=== PATIENT | female | born 1930 | race Caucasian/White ===

== ENCOUNTER 2017-07-06 17:42 | Emergency (ER) | payer MEDICARE, OTHER ==
[2017-07-06] MEDS ORDERED: Sodium Chloride 0.9% 10 ML Syringe FLUSH PRN (18:01)
[2017-07-06 18:06] VITALS: BP 140/75
--- NOTE | 2017-07-06 18:13 | EDM.PDOC ---
ED HPI GENERAL MEDICAL PROBLEM - General Chief Complaint: Abdominal Pain Stated Complaint: STOMACH CRAMPS Time Seen by Provider: 07/06/17 17:48 Source of Information: Reports: Patient History Limitations: Reports: No Limitations - History of Present Illness INITIAL COMMENTS - FREE TEXT/NARRATIVE: Patient reports stomach cramping since Friday. She thought it would go away. Primary doctor is Dr. Alecia Knapp. History of SBO last year. She states the pain is like a cramp, is in the middle. No appetite. Had diarrhea Friday and , has not had good BM's since. No nausea or vomiting. Denies blood in urine or stool. No fever, chills, chest pain, SOB, headaches. No recent contact with illness that she is aware of. She does still have her appendix and gall bladder. History of hysterectomy with both ovaries intact. Right sided inguinal hernia. Onset: Gradual Quality: Reports: Ache Severity: Moderate Improves with: Reports: None Worsens with: Reports: None Associated Symptoms: Reports: Loss of Appetite Middle Abdomen Pain Score (Numeric/FACES): 7 - Related Data Allergies Allergy/AdvReac Type Severity Reaction Status Date / Time No Known Allergies Allergy Verified 07/06/17 17:54 Home Meds: Home Meds . [Unable to Verify Home Med List] 07/06/17 [History] Past Medical History HEENT History: Reports: Impaired Vision, Other (See Below) Other HEENT History: Patient wears glasses Gastrointestinal History: Reports: Hiatal Hernia Other Gastrointestinal History: Patient had a hernia repair in 11/03 and a kink in her colon 11/09 Other Genitourinary History: Patient had a bladder sling 03/2000 and bladder repair [employer] History: Reports: Other OB/BYN 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 Patient had two children Musculoskeletal History: Reports: Osteoarthritis Other Musculoskeletal History: Receives an injection twice a year. - Past Surgical History GI Surgical History: Reports: Colon, Hernia Repair/Other Social & Family History - Tobacco Use Smoking Status *Q: Former Smoker - Recreational Drug Use Recreational Drug Use: No ED ROS GENERAL - Review of Systems Review Of Systems: See Below Constitutional: Reports: Decreased Appetite HEENT: Reports: No Symptoms Respiratory: Reports: No Symptoms Cardiovascular: Reports: No Symptoms Endocrine: Reports: No Symptoms GI/Abdominal: Reports: Abdominal Pain, Diarrhea : Reports: No Symptoms Musculoskeletal: Reports: No Symptoms Skin: Reports: No Symptoms Neurological: Reports: No Symptoms Psychiatric: Reports: No Symptoms Hematologic/Lymphatic: Reports: No Symptoms Immunologic: Reports: No Symptoms ED EXAM, GI/ABD - Physical Exam Exam: See Below Exam Limited By: No Limitations General Appearance: Alert, WD/WN, No Apparent Distress Eyes: Bilateral: EOMI Ears: Normal TMs Throat/Mouth: Normal Inspection Head: Atraumatic, Normocephalic Neck: Normal Inspection Respiratory/Chest: No Respiratory Distress, Lungs Clear, Normal Breath Sounds, No Accessory Muscle Use, Chest Non-Tender Cardiovascular: Normal Peripheral Pulses, Regular Rate, Rhythm, No Edema, Systolic Murmur GI/Abdominal Exam: Guarding, Abnormal Bowel Sounds Course - Vital Signs Last Recorded V/S: Last Vital Signs Temp 36.8 C 07/06/17 17:44 Pulse 80 07/06/17 17:44 Resp 16 07/06/17 17:44 BP 140/75 07/06/17 17:44 Pulse Ox - Orders/Labs/Meds Orders: Active Orders 24 hr Category Date Time Status Abdomen Pelvis w Cont [CT] Stat Exams 07/06/17 18:01 Taken Saline Lock Insert [OM.PC] Routine Oth 07/06/17 18:01 Ordered Labs: Laboratory Tests 07/06/17 07/06/17 Range/Units 18:20 18:20 WBC 6.6 (4.0-10.0) x10^3/uL RBC 4.15 (4.00-5.50) x10^6/uL Hgb 12.6 D (12.0-16.0) g/dL Hct 38.3 (33.0-47.0) % MCV 92.3 (78.0-93.0) fL MCH 30.4 (26.0-32.0) pg MCHC 32.9 (32.0-36.0) g/dL RDW Coeff of Tanja 13.7 (10.0-15.0) % Plt Count 201 D (130-400) x10^3/uL Neut % (Auto) 76.6 (50.0-80.0) % Lymph % (Auto) 12.4 L (25.0-50.0) % [place] % (Auto) 10.2 (2.0-11.0) % Eos % (Auto) 0.6 (0.0-4.0) % Baso % (Auto) 0.2 (0.2-1.2) % Sodium 140 (136-145) mmol/L Potassium 3.8 (3.5-5.1) mmol/L Chloride 100 (98-107) mmol/L Carbon Dioxide 30 (21-32) mmol/L BUN 11 (7-18) mg/dL Creatinine 0.7 (0.55-1.02) mg/dL Est Cr Clr Drug Dosing 41.44 mL/min Estimated GFR (MDRD) > 60 Glucose 119 H (74-106) mg/dL Calcium 9.0 (8.5-10.1) mg/dL Corrected Calcium 9.40 (8.5-10.1) mg/dL Total Bilirubin 0.5 (0.2-1.0) mg/dL AST 26 (15-37) U/L ALT 18 (14-59) U/L Alkaline Phosphatase 96 (46-116) U/L C-Reactive Protein 2.2 H (<=0.9) mg/dL Total Protein 8.1 (6.4-8.2) g/dL Albumin 3.5 (3.4-5.0) g/dL Globulin 4.6 Albumin/Globulin Ratio 0.76 Amylase 77 (25-115) U/L Lipase 108 (73-393) U/L Meds: Medications Discontinued Medications Generic Name Dose Route Start Last Admin Trade Name Freq PRN Reason Stop Dose Admin Sodium Chloride 100 mls @ 3 mls/sec 07/06/17 19:00 07/06/17 19:23 Normal Saline IV 3 mls/sec ASDIRECTED KELLEN Administration Sodium Chloride 1,000 mls @ 999 mls/hr 07/06/17 20:31 07/06/17 20:35 Normal Saline IV 07/06/17 21:31 999 mls/hr ONETIME ONE Administration Iopamidol 100 ml 07/06/17 19:00 07/06/17 19:22 [id number] (61%) IVPUSH 07/06/17 19:01 100 ml ONETIME ONE Administration Sodium Chloride 10 ml 07/06/17 18:01 Saline Flush FLUSH ASDIRECTED PRN Keep Vein Open - Radiology Interpretation Free Text/Narrative:: Await CT abdomen/pelvis with contrast results CT of abdomen pelvis suggests recurrent small bowel obstruction secondary to right inguinal hernia Departure - Departure Time of Disposition: 21:15 Disposition: Home, Self-Care 01 Condition: Good Clinical Impression: Small bowel obstruction, Inguinal hernia, right - Discharge Information Instructions: Small Bowel Obstruction, [id number], Hernia, Adult, Easy-to- Read Referrals: Alecia Knapp, DO [Primary Care Provider] - Forms: ED Department Discharge Additional Instructions: Because your small bowel obstruction is not yet causing you acute nausea, vomiting, or severe abdominal pain, I am going to discharge you to seek out medical care in [place]. You do need to rest your bowels, so do not eat anything. You may drink water. We have printed off all of your medical records to call the clinic/surgeon in [place] tomorrow. 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 They should be able to get you in for surgery this week at some point. If you develop severe abdominal pain, nausea, vomiting, or if you feel for any other reason that your obstruction is getting worse, make sure you come to the emergency as soon as you can. Your hernia can cut off blood flow to part of your bowel, which can cause that section to lose oxygen flow and have to be removed, so again, if you develop the above symptoms, make sure you come in right away You may also go to the emergency room in [place], present them with your information and the CD for your abdominal CT. You would then be able to visit with the tanning solution maker surgeon regarding your options. Please call with any questions or concerns. - Problem List & Annotations (1) Small bowel obstruction SNOMED Code(s): 647317409 Code(s): K56.69 - OTHER INTESTINAL OBSTRUCTION Status: Acute Priority: Low (2) Inguinal hernia, right SNOMED Code(s): 821970374 Code(s): K40.90 - UNIL INGUINAL HERNIA, W/O OBST OR GANGR, NOT SPCF RECUR Status: Acute Priority: Low - Problem List Review Problem List Initiated/Reviewed/Updated: Yes - My Orders Last 24 Hours: My Active Orders 07/06/17 18:01 Abdomen Pelvis w Cont [CT] Stat Saline Lock Insert [OM.PC] Routine - Assessment/Plan Last 24 Hours: My Active Orders 07/06/17 18:01 Abdomen Pelvis w Cont [CT] Stat Saline Lock Insert [OM.PC] Routine Assessment:: SBO Inguinal hernia, right Plan: Because your small bowel obstruction is not yet causing you acute nausea, vomiting, or severe abdominal pain, I am going to discharge you to seek out medical care in [place]. You do need to rest your bowels, so do not eat anything. You may drink water. We have printed off all of your medical records to call the clinic/surgeon in [place] tomorrow. 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 They should be able to get you in for surgery this week at some point. If you develop severe abdominal pain, nausea, vomiting, or if you feel for any other reason that your obstruction is getting worse, make sure you come to the emergency as soon as you can. Your hernia can cut off blood flow to part of your bowel, which can cause that section to lose oxygen flow and have to be removed, so again, if you develop the above symptoms, make sure you come in right away You may also go to the emergency room in [place], present them with your information and the CD for your abdominal CT. You would then be able to visit with the tanning solution maker surgeon regarding your options. Please call with any questions or concerns.
[2017-07-06 18:50] LABS: CHLORIDE,CL 100 mmol/L (98-107); SODIUM,NA 140 mmol/L (136-145)
[2017-07-06] MEDS ORDERED: Sodium Chloride 0.9% 100 ML IV SCH (19:00)
[2017-07-06] MEDS ORDERED: Iopamidol 612 MG/ML 100 ML Bottle IVPUSH ONE (19:00)
[2017-07-06] MEDS ORDERED: Sodium Chloride 0.9% 1,000 ML IV ONE (20:31)
== END 2017-07-06 21:15 | disposition home or self-care (01) ==
LOC: VM.ED 17:42
DX: K40.30 Unilateral inguinal hernia, with obstruction, without gangrene, not specified as recurrent (principal); M19.90 Unspecified osteoarthritis, unspecified site; Z87.891 Personal history of nicotine dependence; Z90.710 Acquired absence of both cervix and uterus
CPT/HCPCS: 36415; 74177; 80053; 82150; 83690; 85025; 86140; 96360; 99284; J7030; J7050; Q9967

== ENCOUNTER 2018-05-04 13:38 | Emergency (ER) | payer MEDICARE, OTHER ==
[2018-05-04] MEDS ORDERED: Sodium Chloride 0.9% 10 ML Syringe FLUSH PRN (13:47)
[2018-05-04] MEDS ORDERED: Ondansetron 4 MG/2 ML SDV IVPUSH ONE (13:48)
[2018-05-04] MEDS ORDERED: Sodium Chloride 0.9% 1,000 ML IV ONE (13:48)
[2018-05-04] MEDS ORDERED: Ondansetron 4 MG/2 ML SDV ONE (14:44)
[2018-05-04 14:48] LABS: CHLORIDE,CL 100 mmol/L (98-107); SODIUM,NA 137 mmol/L (136-145)
[2018-05-04] MEDS ORDERED: Morphine 4 MG/ML Syringe IVPUSH ONE ×2 (15:01→16:27)
--- NOTE | 2018-05-04 16:55 | EDM.PDOC ---
ED HPI GENERAL MEDICAL PROBLEM - General Chief Complaint: Gastrointestinal Problem Stated Complaint: ER Time Seen by Provider: 05/04/18 13:46 Source of Information: Reports: Patient, Family - History of Present Illness INITIAL COMMENTS - FREE TEXT/NARRATIVE: Pt. presents to ER with complaints of abdominal pain, nausea, and vomiting that started earlier today. Pt. has a history of recurrent small bowel obstructions as well as a large ventral hernia that was thought to be causing some of her issues. The hernia was repaired at [facility] [place]. Pt. states that she has not been experiencing any fever or chills. No chest pain or shortness of breath. Onset: Today Duration: Constant, Getting Worse Location: Reports: Abdomen Quality: Reports: Ache Severity: Moderate Abdominal Pain Score (Numeric/FACES): 8 - Related Data Allergies Allergy/AdvReac Type Severity Reaction Status Date / Time No Known Allergies Allergy Verified 05/04/18 15:09 Home Meds: Home Meds Brimonidine Tartrate [Alphagan P 0.1% Ophth Soln] 1 drop EYEBOTH BID 05/04/18 [ History] Calcium Carb & Citrate/Vit D3 [Calcium + D3 ER Tablet] 1 each PO BID 05/04/18 [ History] Glucosamine/D3/Boswellia Urvashi [Osteo Bi-Flex Caplet] 1 each PO BID 05/04/18 [ History] Latanoprost 1 drop EYEBOTH BEDTIME 05/04/18 [History] Multivitamin [Multivitamins] 1 each PO DAILY 05/04/18 [History] Psyllium Husk [Metamucil] 1 tsp PO DAILY PRN 05/04/18 [History] Past Medical History HEENT History: Reports: Impaired Vision, Other (See Below) Other HEENT History: Patient wears glasses Gastrointestinal History: Reports: Hiatal Hernia Other Gastrointestinal History: Patient had a hernia repair in 11/03 and a kink in her colon 11/09 Other Genitourinary History: Patient had a bladder sling 03/2000 and bladder repair [employer]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 Patient had two children Musculoskeletal History: Reports: Osteoarthritis Other Musculoskeletal History: Receives an injection twice a year. - Past Surgical History GI Surgical History: Reports: Colon, Hernia Repair/Other Social & Family History - Tobacco Use Smoking Status *Q: Never Smoker ED ROS GENERAL - Review of Systems Review Of Systems: See Below Constitutional: Reports: No Symptoms HEENT: Reports: No Symptoms Respiratory: Reports: No Symptoms Cardiovascular: Reports: No Symptoms Endocrine: Reports: No Symptoms GI/Abdominal: Reports: Abdominal Pain, Vomiting : Reports: No Symptoms Musculoskeletal: Reports: No Symptoms Skin: Reports: No Symptoms Neurological: Reports: No Symptoms Psychiatric: Reports: No Symptoms Hematologic/Lymphatic: Reports: No Symptoms Immunologic: Reports: No Symptoms ED EXAM, GENERAL - Physical Exam Exam: See Below Exam Limited By: No Limitations General Appearance: Alert, WD/WN, No Apparent Distress Nose: Normal Inspection, Normal Mucosa, No Blood Throat/Mouth: Normal Inspection, Normal Lips, Normal Teeth, Normal Gums, Normal Oropharynx, Normal Voice, No Airway Compromise Head: Atraumatic, Normocephalic Neck: Normal Inspection, Supple, Non-Tender, Full Range of Motion Respiratory/Chest: No Respiratory Distress, Lungs Clear, Normal Breath Sounds, No Accessory Muscle Use, Chest Non-Tender Cardiovascular: Normal Peripheral Pulses, Regular Rate, Rhythm, No Edema, No Gallop, No JVD, No Murmur, No Rub Peripheral Pulses: 4+: Radial (L), Radial (R) GI/Abdominal: Soft, No Organomegaly, Tender, Other (bowel sounds are very diminished) (Female) Exam: Deferred Rectal (Female) Exam: Deferred Back Exam: Normal Inspection, Full Range of Motion, NT Extremities: Normal Inspection, Normal Range of Motion, Non-Tender, Normal Capillary Refill, No Pedal Edema Neurological: Alert, Oriented, CN II-XII Intact, Normal Cognition, Normal Gait, Normal Reflexes, No Motor/Sensory Deficits Psychiatric: Normal Affect, Normal Mood Skin Exam: Warm, Dry, Intact, Normal Color, No Rash Lymphatic: No Adenopathy Course - Vital Signs Last Recorded V/S: Last Vital Signs Temp 35.5 C 05/04/18 13:45 Pulse 64 05/04/18 13:45 Resp 16 05/04/18 13:45 BP 135/60 05/04/18 13:45 Pulse Ox 96 05/04/18 13:45 - Orders/Labs/Meds Orders: Active Orders 24 hr Category Date Time Status EKG Documentation Completion [RC] STAT Care 05/04/18 13:47 Active Abdomen Pelvis wo Cont [CT] Stat Exams 05/04/18 14:51 Ordered Abdomen Series w Chest 1V [CR] Stat Exams 05/04/18 13:47 Taken Sodium Chloride 0.9% [Saline Flush] Med 05/04/18 13:47 Active 10 ml FLUSH ASDIRECTED PRN NG [Nasogastric Orogastric Tube Insertion] [OM.PC] Oth 05/04/18 16:39 Ordered Routine Peripheral IV Insertion Adult [OM.PC] Routine Oth 05/04/18 13:48 Ordered Medication Orders Sodium Chloride (Saline Flush) 10 ml FLUSH ASDIRECTED PRN PRN Reason: Keep Vein Open Labs: Laboratory Tests 05/04/18 05/04/18 05/04/18 Range/Units 14:19 14:19 14:19 WBC 11.8 H (4.0-10.0) x10^3/uL RBC 4.93 (4.00-5.50) x10^6/uL Hgb 14.4 D (12.0-16.0) g/dL Hct 44.8 (33.0-47.0) % MCV 90.9 (78.0-93.0) fL MCH 29.2 (26.0-32.0) pg MCHC 32.1 (32.0-36.0) g/dL RDW Coeff of Tanja 14.5 (10.0-15.0) % Plt Count 229 (130-400) x10^3/uL Neut % (Auto) 89.4 H (50.0-80.0) % Lymph % (Auto) 4.9 L (25.0-50.0) % [place] % (Auto) 5.3 (2.0-11.0) % Eos % (Auto) 0.3 (0.0-4.0) % Baso % (Auto) 0.1 L (0.2-1.2) % PT 10.2 (9.6-11.4) SEC INR 1.0 L (2.0-3.5) Sodium 137 (136-145) mmol/L Potassium 3.8 (3.5-5.1) mmol/L Chloride 100 (98-107) mmol/L Carbon Dioxide 30 (21-32) mmol/L Anion Gap 10.8 (10-20) mmol/L BUN 14 (7-18) mg/dL Creatinine 0.7 (0.55-1.02) mg/dL Est Cr Clr Drug Dosing TNP Estimated GFR (MDRD) > 60 Glucose 148 H (74-106) mg/dL Calcium 9.6 (8.5-10.1) mg/dL Corrected Calcium 9.68 (8.5-10.1) mg/dL Phosphorus 4.7 (2.6-4.7) mg/dL Magnesium 2.1 (1.8-2.4) mg/dL Total Bilirubin 0.6 (0.2-1.0) mg/dL AST 28 (15-37) U/L ALT 22 (14-59) U/L Alkaline Phosphatase 116 (46-116) U/L Troponin I < 0.017 (<=0.056) ng/mL C-Reactive Protein 0.8 (<=0.9) mg/dL Total Protein 8.9 H (6.4-8.2) g/dL Albumin 3.9 (3.4-5.0) g/dL Globulin 5.0 Albumin/Globulin Ratio 0.78 Amylase 91 (25-115) U/L Meds: Medications Generic Name Dose Route Start Last Admin Trade Name Freq PRN Reason Stop Dose Admin Sodium Chloride 10 ml 05/04/18 13:47 Saline Flush FLUSH ASDIRECTED PRN Keep Vein Open Discontinued Medications Generic Name Dose Route Start Last Admin Trade Name Freq PRN Reason Stop Dose Admin Sodium Chloride 1,000 mls @ 1,000 mls/hr 05/04/18 13:48 05/04/18 14:52 Normal Saline IV 05/04/18 14:47 1,000 mls/hr .BOLUS ONE Administration Morphine Sulfate 4 mg 05/04/18 15:01 05/04/18 15:30 Morphine IVPUSH 05/04/18 15:02 4 mg ONETIME ONE Administration Morphine Sulfate 4 mg 05/04/18 16:27 05/04/18 16:37 Morphine IVPUSH 05/04/18 16:28 4 mg ONETIME ONE Administration Ondansetron HCl 4 mg 05/04/18 13:48 05/04/18 14:52 Zofran IVPUSH 05/04/18 13:49 Not Given ONETIME ONE Ondansetron HCl Confirm 05/04/18 14:44 05/04/18 14:52 Zofran Administered 05/04/18 14:45 4 mg Dose Administration 4 mg .ROUTE .[facility] ONE - Radiology Interpretation Free Text/Narrative:: CT shows distal SBO, likely secondary to an adhesion. Departure - Departure Time of Disposition: 17:00 Disposition: DC/Tfer to [facility] 02 Clinical Impression: Bowel obstruction - Discharge Information Referrals: Alecia Knapp DO [Primary Care Provider] - Forms: ED Department Discharge, Interfacility Transfer EMTALA - My Orders Last 24 Hours: My Active Orders 05/04/18 13:47 EKG Documentation Completion [RC] STAT Abdomen Series w Chest 1V [CR] Stat Sodium Chloride 0.9% [Saline Flush] 10 ml FLUSH ASDIRECTED PRN 05/04/18 13:48 Peripheral IV Insertion Adult [OM.PC] Routine 05/04/18 14:51 Abdomen Pelvis wo Cont [CT] Stat 05/04/18 16:39 NG [Nasogastric Orogastric Tube Insertion] [OM.PC] Routine - Assessment/Plan Last 24 Hours: My Active Orders 05/04/18 13:47 EKG Documentation Completion [RC] STAT Abdomen Series w Chest 1V [CR] Stat Sodium Chloride 0.9% [Saline Flush] 10 ml FLUSH ASDIRECTED PRN 05/04/18 13:48 Peripheral IV Insertion Adult [OM.PC] Routine 05/04/18 14:51 Abdomen Pelvis wo Cont [CT] Stat 05/04/18 16:39 NG [Nasogastric Orogastric Tube Insertion] [OM.PC] Routine
[2018-05-04 17:15] VITALS: BP 128/72
== END 2018-05-04 17:25 | disposition short-term general hospital (02) ==
LOC: VM.ED 13:38
DX: K56.609 Unspecified intestinal obstruction, unspecified as to partial versus complete obstruction (principal); M19.90 Unspecified osteoarthritis, unspecified site; Z79.899 Other long term (current) drug therapy
CPT/HCPCS: 36415; 74022; 74176; 80053; 82150; 83735; 84100; 84484; 85025; 85610; 86140; 93005; 96361; 96374; 96375; 96376; 99285; J2270; J2405; J7030; 99284-GF

== ENCOUNTER 2018-05-15 18:43 | Emergency (ER) | payer MEDICARE, OTHER ==
[2018-05-15] MEDS ORDERED: Sodium Chloride 0.9% 10 ML Syringe FLUSH PRN (19:00)
[2018-05-15] MEDS: cefTRIAXone 1 GM Vial IVPUSH ONE (19:25)
[2018-05-15] MEDS: Lactated Ringers 1,000 ML IV SCH (19:26)
[2018-05-15] MEDS: Piperacillin/Tazobactam 3.375 GM in Sodium Chloride 0.9% 100 ML IV ONE (19:27)
--- NOTE | 2018-05-15 19:45 | EDM.PDOC ---
ED HPI GENERAL MEDICAL PROBLEM - General Chief Complaint: Gastrointestinal Problem Stated Complaint: incision looks infected Time Seen by Provider: 05/15/18 19:00 Source of Information: Reports: Patient, Family History Limitations: Reports: No Limitations - History of Present Illness INITIAL COMMENTS - FREE TEXT/NARRATIVE: Patient was seen 05/04/18 for SBO and transferred for surgical repair. [place] performed last week [place] [facility] and transferred to [facility] after she began vomiting. A nasogastric tube was inserted then transferred. She was discharged on Friday. She is in tonight with complaints of fever and red, hot abdominal incision. 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 She does take some glaucoma drops and daily vitamins. NO daily medications orally. She denies chills or night sweats, incision is draining, did have a bowel movement this morning and is passing gas. No chest pain, SOB. Pain is located to abdominal incision. Onset: Gradual Duration: Getting Worse Location: Reports: Abdomen Quality: Reports: Ache Severity: Mild Associated Symptoms: Reports: Fever/Chills Lower Abdominal Pain Score (Numeric/FACES): 2 - Related Data Allergies Allergy/AdvReac Type Severity Reaction Status Date / Time No Known Allergies Allergy Verified 05/15/18 18:50 Home Meds: Home Meds Brimonidine Tartrate [Alphagan P 0.1% Ophth Soln] 1 drop EYEBOTH BID 05/04/18 [ History] Calcium Carb & Citrate/Vit D3 [Calcium + D3 ER Tablet] 1 each PO BID 05/04/18 [ History] Glucosamine/D3/Boswellia Urvashi [Osteo Bi-Flex Caplet] 1 each PO BID 05/04/18 [ History] Latanoprost 1 drop EYEBOTH BEDTIME 05/04/18 [History] Multivitamin [Multivitamins] 1 each PO DAILY 05/04/18 [History] Psyllium Husk [Metamucil] 1 tsp PO DAILY PRN 05/04/18 [History] Past Medical History HEENT History: Reports: Impaired Vision, Other (See Below) Other HEENT History: Patient wears glasses Gastrointestinal History: Reports: Hiatal Hernia Other Gastrointestinal History: Patient had a hernia repair in 11/03 and a kink in her colon 11/09 Other Genitourinary History: Patient had a bladder sling 03/2000 and bladder repair 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 Patient had two children Musculoskeletal History: Reports: Osteoarthritis Other Musculoskeletal History: Receives an injection twice a year. - Past Surgical History GI Surgical History: Reports: Colon, Hernia Repair/Other ED ROS GENERAL - Review of Systems Review Of Systems: See Below Constitutional: Reports: Fever HEENT: Reports: No Symptoms Respiratory: Reports: No Symptoms Cardiovascular: Reports: No Symptoms Endocrine: Reports: No Symptoms GI/Abdominal: Reports: Abdominal Pain : Reports: No Symptoms Musculoskeletal: Reports: No Symptoms Skin: Reports: Wound (hot to touch, draining) Neurological: Reports: No Symptoms Psychiatric: Reports: No Symptoms Hematologic/Lymphatic: Reports: No Symptoms Immunologic: Reports: No Symptoms ED EXAM, GI/ABD - Physical Exam Exam: See Below Exam Limited By: No Limitations General Appearance: Alert, WD/WN, No Apparent Distress Eyes: Bilateral: Normal Appearance, EOMI Ears: Normal TMs Nose: Normal Inspection, Normal Mucosa, No Blood Throat/Mouth: Normal Inspection, Normal Lips, Normal Teeth, Normal Gums, Normal Oropharynx, Normal Voice, No Airway Compromise Head: Atraumatic, Normocephalic Neck: Normal Inspection, Supple, Non-Tender, Full Range of Motion Respiratory/Chest: No Respiratory Distress, Lungs Clear, Normal Breath Sounds, No Accessory Muscle Use, Chest Non-Tender Cardiovascular: Normal Peripheral Pulses, Regular Rate, Rhythm, No Edema, No Gallop, No JVD, No Murmur, No Rub GI/Abdominal Exam: Normal Bowel Sounds, Tender, Other (abdomen soft in areas away from transverse incision. incision area is firm and more painful) Back Exam: Normal Inspection, Full Range of Motion, NT Extremities: Normal Inspection, Normal Range of Motion, Non-Tender, Normal Capillary Refill, No Pedal Edema Neurological: Alert, Oriented, CN II-XII Intact, Normal Cognition, Normal Gait, Normal Reflexes, No Motor/Sensory Deficits Psychiatric: Normal Affect, Normal Mood Skin Exam: Erythema, Increased Warmth, Wound/Incision (wound is draining purulent drainage, red, hot to touch, ez are intact, wound is approximated ) Course - Vital Signs Last Recorded V/S: Last Vital Signs Temp 37.7 C 05/15/18 22:14 Pulse 89 05/15/18 22:14 Resp 16 05/15/18 22:14 BP 130/59 L 05/15/18 22:14 Pulse Ox 97 05/15/18 22:14 - Orders/Labs/Meds Orders: Active Orders 24 hr Category Date Time Status Abdomen Pelvis w Cont [CT] Stat Exams 05/15/18 19:01 Ordered CULTURE BLOOD [BC] Stat Lab 05/15/18 18:57 Ordered CULTURE BLOOD [BC] Stat Lab 05/15/18 18:57 Ordered Lactated Ringers @ 150 MLS/HR(1,000ml) Med 05/15/18 19:15 Ordered Lactated Ringers [Ringers, Lactated] 1,000 ml IV ASDIRECTED Sodium Chloride 0.9% [Saline Flush] Med 05/15/18 19:00 Ordered 10 ml FLUSH ASDIRECTED PRN Blood Culture x2 Reflex Set [OM.PC] Stat Oth 05/15/18 18:57 Ordered Saline Lock Insert [OM.PC] Routine Oth 05/15/18 19:00 Ordered Medication Orders Lactated Ringer's (Ringers, Lactated) 1,000 mls @ 150 mls/hr IV ASDIRECTED KELLEN Last Admin: 05/15/18 19:26 Dose: 150 mls/hr Sodium Chloride (Saline Flush) 10 ml FLUSH ASDIRECTED PRN PRN Reason: Keep Vein Open Labs: Laboratory Tests 05/15/18 05/15/18 05/15/18 Range/Units 19:29 19:29 20:00 WBC 12.5 H (4.0-10.0) x10^3/uL RBC 3.50 L (4.00-5.50) x10^6/uL Hgb 10.1 L D (12.0-16.0) g/dL Hct 30.8 L (33.0-47.0) % MCV 88.0 (78.0-93.0) fL MCH 28.9 (26.0-32.0) pg MCHC 32.8 (32.0-36.0) g/dL RDW Coeff of Tanja 14.4 (10.0-15.0) % Plt Count 315 D (130-400) x10^3/uL Add Manual Diff Yes Neutrophils % (Manual) 78 (50-80) % Band Neutrophils % 4 (0-6) % Lymphocytes % (Manual) 16 L (25-50) % Metamyelocytes % 2 H (0) % Platelet Estimate Adequate Sodium 134 L (136-145) mmol/L Potassium 4.0 (3.5-5.1) mmol/L Chloride 99 (98-107) mmol/L Carbon Dioxide 24 (21-32) mmol/L Anion Gap 15.0 (10-20) mmol/L BUN 16 (7-18) mg/dL Creatinine 0.6 (0.55-1.02) mg/dL Est Cr Clr Drug Dosing 47.45 mL/min Estimated GFR (MDRD) > 60 Glucose 113 H (74-106) mg/dL Lactic Acid 0.9 (0.4-2.0) mmol/L Calcium 8.4 L (8.5-10.1) mg/dL Corrected Calcium 9.20 (8.5-10.1) mg/dL Total Bilirubin 0.7 (0.2-1.0) mg/dL AST 142 H (15-37) U/L ALT 175 H (14-59) U/L Alkaline Phosphatase 147 H (46-116) U/L Total Protein 7.9 (6.4-8.2) g/dL Albumin 3.0 L (3.4-5.0) g/dL Globulin 4.9 Albumin/Globulin Ratio 0.61 Meds: Medications Generic Name Dose Route Start Last Admin Trade Name Freq PRN Reason Stop Dose Admin Lactated Ringer's 1,000 mls @ 150 mls/hr 05/15/18 19:15 05/15/18 19:26 Ringers, Lactated IV 150 mls/hr ASDIRECTED KELLEN Administration Sodium Chloride 10 ml 05/15/18 19:00 Saline Flush FLUSH ASDIRECTED PRN Keep Vein Open Discontinued Medications Generic Name Dose Route Start Last Admin Trade Name Freq PRN Reason Stop Dose Admin Ceftriaxone Sodium 1 gm 05/15/18 19:01 05/15/18 19:25 Rocephin IVPUSH 05/15/18 19:02 1 gm STAT ONE Administration Piperacillin Sod/Tazobactam 100 mls @ 200 mls/hr 05/15/18 19:00 05/15/18 19: 27 Sod 3.375 gm/ Sodium Chloride IV 05/15/18 19:29 200 mls/hr ONETIME ONE Administration Iopamidol 100 ml 05/15/18 19:05 05/15/18 19:58 Isovue-300 (61%) IVPUSH 05/15/18 19:06 100 ml ONETIME ONE Administration - Radiology Interpretation Free Text/Narrative:: abdominal CT results: Small subcutaneous fluid collection along the upper aspect of the midline skin ez. This may represent seroma, hematoma, or abscess. 2. Gastrointestinal tract findings most consistent with generalized ileus. Follow up is recommended. - Re-Assessments/Exams Free Text/Narrative Re-Assessment/Exam: 05/15/18 19:49 CT ordered to determine status of abscess, cellulitis Free Text/Narrative Re-Assessment/Exam: 05/15/18 22:18 Patient case was called to [facility] to discuss further treatment of her incision. Dr. Hazel indicated to [place] [facility] call that she should return to [facility] since this is a post operative complication and they should follow up. I then called Dr. Carolina who initially did accept the patient but was concerned that she transferred to [place] postoperatively. I at that time did not have records indicating why she was transferred. She was transferred after post op. nausea and vomiting with NG placement. Dr. Apodaca in [place] felt that transferring her was best in case the need arose for more advanced surgical intervention as she does have a long history of SBO. Dr. Rachel Peterson was called to determine if she would admit with the patient having a partially opened wound for draining and she did not feel comfortable with this type of patient here. [facility] notified that she would be transferring. I visited with Dr. Glass in the ER. Dr. Carolina did request that I review her chart to be sure that she would not need transferring to [place]. He didn't want to be moving her all over the [place] if a repeat medical condition repeated itself. She was not transferred for any conditions that they would not be able to address. Departure - Departure Time of Disposition: 22:32 Disposition: DC/Tfer to Acute Hospital 02 Condition: Fair Clinical Impression: Postoperative wound infection - Discharge Information Referrals: Alecia Knapp DO [Primary Care Provider] - Forms: ED Department Discharge, Interfacility Transfer [facility] ED Communication - ED Communication Date/Time Date: 05/15/18 Time Called: 22:10 - Discussed Case With (1) Discussed Case With (1): Admitting Provider (Dr. Carolina did accept care of the patient, Dr. Glass notified in ER as well.) - My Orders Last 24 Hours: My Active Orders 05/15/18 18:57 CULTURE BLOOD [BC] Stat CULTURE BLOOD [BC] Stat Blood Culture x2 Reflex Set [OM.PC] Stat 05/15/18 19:00 Sodium Chloride 0.9% [Saline Flush] 10 ml FLUSH ASDIRECTED PRN Saline Lock Insert [OM.PC] Routine 05/15/18 19:01 Abdomen Pelvis w Cont [CT] Stat 05/15/18 19:15 Lactated Ringers @ 150 MLS/HR(1,000ml) Lactated Ringers [Ringers, Lactated] 1, 000 ml IV ASDIRECTED - Assessment/Plan Last 24 Hours: My Active Orders 05/15/18 18:57 CULTURE BLOOD [BC] Stat CULTURE BLOOD [BC] Stat Blood Culture x2 Reflex Set [OM.PC] Stat 05/15/18 19:00 Sodium Chloride 0.9% [Saline Flush] 10 ml FLUSH ASDIRECTED PRN Saline Lock Insert [OM.PC] Routine 05/15/18 19:01 Abdomen Pelvis w Cont [CT] Stat 05/15/18 19:15 Lactated Ringers @ 150 MLS/HR(1,000ml) Lactated Ringers [Ringers, Lactated] 1, 000 ml IV ASDIRECTED
[2018-05-15] MEDS: Iopamidol 612 MG/ML 100 ML Bottle IVPUSH ONE (19:58)
[2018-05-15 20:09] LABS: CHLORIDE,CL 99 mmol/L (98-107); SODIUM,NA 134 mmol/L (136-145)
[2018-05-15 22:22] VITALS: BP 130/59
== END 2018-05-15 22:30 | disposition short-term general hospital (02) ==
LOC: VM.ED 18:43
DX: T81.4XXA Infection following a procedure, initial encounter (principal); Z79.899 Other long term (current) drug therapy; Z98.890 Other specified postprocedural states
CPT/HCPCS: 36415; 74177; 80053; 83605; 85025; 87040; 96365; 96366; 96368; 96375; 99285; J0696; J2543; J7050; J7120; Q9967

== ENCOUNTER 2019-10-29 20:10 | Emergency (ER) | payer MEDICARE, OTHER ==
--- NOTE | 2019-10-29 20:32 | EDM.PDOC ---
ED HPI GENERAL MEDICAL PROBLEM - General Time Seen by Provider: 10/29/19 20:32 - History of Present Illness INITIAL COMMENTS - FREE TEXT/NARRATIVE: Pt with hx of bowel obstruction in the past presents c/o abd pain started at 1630 today and has not changed. Pt with bowel movements today states several this after noon, no changes in bladder habit. Lower Abdomen Pain Score (Numeric/FACES): 8 - Related Data Allergies Allergy/AdvReac Type Severity Reaction Status Date / Time No Known Allergies Allergy Verified 10/29/19 21:20 Home Meds: Home Meds Brimonidine Tartrate [Alphagan P 0.1% Ophth Soln] 1 drop EYEBOTH BID 05/04/18 [ History] Calcium Carb, Citrate/Vit D3 [Calcium + D3 ER Tablet] 1 each PO BID 05/04/18 [ History] Glucosamine/D3/Boswellia Urvashi [Osteo Bi-Flex Caplet] 1 each PO BID 05/04/18 [ History] Latanoprost 1 drop EYEBOTH BEDTIME 05/04/18 [History] Multivitamin [Multivitamins] 1 each PO DAILY 05/04/18 [History] Psyllium Husk [Metamucil] 1 tsp PO DAILY PRN 05/04/18 [History] Past Medical History HEENT History: Reports: Impaired Vision, Other (See Below) Other HEENT History: Patient wears glasses Gastrointestinal History: Reports: Hiatal Hernia Other Gastrointestinal History: Patient had a hernia repair in 11/03 and a kink in her colon 11/09 Other Genitourinary History: Patient had a bladder sling 03/2000 and bladder repair 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 Patient had two children Musculoskeletal History: Reports: Osteoarthritis Other Musculoskeletal History: Receives an injection twice a year. - Past Surgical History GI Surgical History: Reports: Colon, Hernia Repair/Other ED ROS GENERAL - Review of Systems Review Of Systems: See Below Constitutional: Reports: No Symptoms HEENT: Reports: No Symptoms Respiratory: Reports: No Symptoms Cardiovascular: Reports: No Symptoms Endocrine: Reports: No Symptoms GI/Abdominal: Reports: Abdominal Pain, Flatus : Reports: No Symptoms Musculoskeletal: Reports: No Symptoms Skin: Reports: No Symptoms Neurological: Reports: No Symptoms Psychiatric: Reports: No Symptoms Hematologic/Lymphatic: Reports: No Symptoms ED EXAM, GENERAL - Physical Exam Exam: See Below Free Text/Narrative:: Pt presents with mid abd pain started at 1630 tonight and has not changed. Pt with hx of bowel obstructions in the past. Pt states she has had several bm tonight as of then with gas. Ct notes severely dilated loops of small bowel in mid abdomen, bilateral renal cysts, small free fluid in the pelvis. Discussed with Dr. Rivero Hospitalist at [facility] will transfer to there facility for further evaluation and treatment as needed. Exam Limited By: No Limitations General Appearance: Alert, WD/WN, Moderate Distress Ears: Normal External Exam Nose: Normal Inspection Throat/Mouth: Normal Inspection Head: Atraumatic, Normocephalic Neck: Normal Inspection, Supple, Non-Tender Respiratory/Chest: No Respiratory Distress, Lungs Clear, Normal Breath Sounds, No Accessory Muscle Use, Chest Non-Tender Cardiovascular: Normal Peripheral Pulses GI/Abdominal: Other (mid abd pain on palpation ) Back Exam: Normal Inspection Neurological: Alert, Oriented Psychiatric: Normal Affect, Normal Mood Skin Exam: Warm, Dry, Intact, Normal Color, No Rash Course - Vital Signs Last Recorded V/S: Last Vital Signs Temp 36.9 C 10/29/19 20:10 Pulse 67 10/29/19 20:10 Resp 16 10/29/19 20:10 BP 153/71 H 10/29/19 20:10 Pulse Ox 99 10/29/19 20:10 - Orders/Labs/Meds Orders: Active Orders 24 hr Category Date Time Status Gastrointestinal Tube Mgmt [RC] ASDIRECTED Care 10/29/19 23:09 Ordered Abdomen Pelvis w Cont [CT] Stat Exams 10/29/19 21:18 Taken CULTURE BLOOD [BC] Stat Lab 10/29/19 23:04 Ordered CULTURE BLOOD [BC] Stat Lab 10/29/19 23:04 Ordered LACTIC ACID [CHEM] Stat Lab 10/29/19 23:10 Ordered Blood Culture x2 Reflex Set [OM.PC] Stat Oth 10/29/19 23:04 Ordered Labs: Laboratory Tests 10/29/19 10/29/19 10/29/19 Range/Units 20:25 20:25 20:48 WBC 11.5 H (4.0-10.0) x10^3/uL RBC 3.52 L (4.00-5.50) x10^6/uL Hgb 9.0 L (12.0-16.0) g/dL Hct 29.3 L (33.0-47.0) % MCV 83.2 D (78.0-93.0) fL MCH 25.6 L (26.0-32.0) pg MCHC 30.7 L (32.0-36.0) g/dL RDW Coeff of Tanja 16.6 H (10.0-15.0) % Plt Count 334 (130-400) x10^3/uL Neut % (Auto) 89.2 H (50.0-80.0) % Lymph % (Auto) 5.4 L (25.0-50.0) % Mccracken % (Auto) 4.7 (2.0-11.0) % Eos % (Auto) 0.2 (0.0-4.0) % Baso % (Auto) 0.5 (0.2-1.2) % Sodium 138 (136-145) mmol/L Potassium 3.4 L (3.5-5.1) mmol/L Chloride 100 (98-107) mmol/L Carbon Dioxide 26 (21-32) mmol/L Anion Gap 15.4 (10-20) mmol/L BUN 16 (7-18) mg/dL Creatinine 0.6 (0.55-1.02) mg/dL Est Cr Clr Drug Dosing TNP Estimated GFR (MDRD) > 60 Glucose 166 H (74-106) mg/dL Calcium 8.3 L (8.5-10.1) mg/dL Urine Color Yellow (YELLOW) Urine Appearance Clear (CLEAR) Urine pH 6.5 (5.0-8.0) Ur Specific [place] 1.025 Urine Protein Negative (NEGATIVE) mg/dL Urine Glucose (UA) Negative (NEGATIVE) mg/dL Urine Ketones 80 H (NEGATIVE) mg/dL Urine Occult Blood Trace-intact H (NEGATIVE) Urine Nitrite Negative (NEGATIVE) Urine Bilirubin Negative (NEGATIVE) Urine Urobilinogen 0.2 (0.2) EU/dL Ur Leukocyte Esterase Negative (NEGATIVE) Urine RBC 0-5 (NOT SEEN) /HPF Urine WBC 5-10 H (NOT SEEN) /HPF Ur Squamous Epith Cells Rare (NEGATIVE) /HPF Amorphous Sediment Few Urine Bacteria Few H (NEGATIVE) /HPF Urine Mucus Moderate H (NEGATIVE) /LPF Meds: Medications Discontinued Medications Generic Name Dose Route Start Last Admin Trade Name Erna PRN Reason Stop Dose Admin Ceftriaxone Sodium 1 gm 10/29/19 23:24 Rocephin IV 10/29/19 23:25 STAT ONE Ceftriaxone Sodium 1 gm 10/29/19 23:27 Rocephin IVPUSH 10/29/19 23:28 STAT ONE Cephalexin 1 packet 10/29/19 22:49 Take Home: Cephalexin 250 Mg/5 Ml, 1 Bottle PO 10/29/19 22:50 ONETIME ONE Fentanyl 50 mcg 10/29/19 20:35 10/29/19 20:47 Sublimaze IVPUSH 10/29/19 20:36 50 mcg ONETIME ONE Administration Fentanyl 50 mcg 10/29/19 22:35 10/29/19 22:43 Sublimaze IVPUSH 10/29/19 22:36 50 mcg ONETIME ONE Administration Iopamidol 100 ml 10/29/19 21:33 10/29/19 21:56 Isovue-300 (61%) IVPUSH 10/29/19 21:34 100 ml ONETIME ONE Administration Ondansetron HCl 4 mg 10/29/19 20:36 10/29/19 20:45 Zofran IVPUSH 10/29/19 20:37 4 mg ONETIME ONE Administration Departure - Departure Time of Disposition: 23:31 Disposition: DC/Tfer to Acute Hospital 02 Condition: Fair Clinical Impression: Small bowel obstruction - Discharge Information Referrals: Alecia Knapp DO [Primary Care Provider] - Forms: Interfacility Transfer EMTALA - My Orders Last 24 Hours: My Active Orders 10/29/19 21:18 Abdomen Pelvis w Cont [CT] Stat 10/29/19 23:04 CULTURE BLOOD [BC] Stat CULTURE BLOOD [BC] Stat Blood Culture x2 Reflex Set [OM.PC] Stat 10/29/19 23:09 Gastrointestinal Tube Mgmt [RC] ASDIRECTED 10/29/19 23:10 LACTIC ACID [CHEM] Stat - Assessment/Plan Last 24 Hours: My Active Orders 10/29/19 21:18 Abdomen Pelvis w Cont [CT] Stat 10/29/19 23:04 CULTURE BLOOD [BC] Stat CULTURE BLOOD [BC] Stat Blood Culture x2 Reflex Set [OM.PC] Stat 10/29/19 23:09 Gastrointestinal Tube Mgmt [RC] ASDIRECTED 10/29/19 23:10 LACTIC ACID [CHEM] Stat
[2019-10-29] MEDS ORDERED: fentaNYL 100 MCG/2 ML SDV IVPUSH ONE ×2 (20:35→22:35)
[2019-10-29] MEDS ORDERED: Ondansetron 4 MG/2 ML SDV IVPUSH ONE (20:36)
[2019-10-29 20:57] LABS: CHLORIDE,CL 100 mmol/L (98-107); SODIUM,NA 138 mmol/L (136-145)
[2019-10-29 20:58] LABS: ANION GAP 15.4 mmol/L (10-20)
[2019-10-29 21:12] VITALS: BP 153/71; PULSE 67
[2019-10-29] MEDS ORDERED: Iopamidol 612 MG/ML 100 ML Bottle IVPUSH ONE (21:33)
[2019-10-29] MEDS ORDERED: Take Home: Cephalexin 250 MG/5 ML Susp 100 ML Bottle, 1 Bottle Pack PO ONE (22:49)
[2019-10-29] MEDS ORDERED: cefTRIAXone 1 GM Vial IV ONE (23:24)
[2019-10-29] MEDS ORDERED: cefTRIAXone 1 GM Vial IVPUSH ONE (23:27)
--- NOTE | 2019-10-30 08:42 | CT ---
[id number] CT/CT Abdomen Pelvis W IV EXAM: ABDOMEN AND PELVIS CT WITH CONTRAST INDICATION: Lower midline abdominal pain with history of bowel obstruction. COMPARISON: May 15, 2018. DISCUSSION: The small bowel progressively dilates to approximately 5 cm and abruptly transitions to decompressed bowel in the right lower quadrant (image 74 series 2) compatible with small bowel obstruction. The mesentery of the distalmost obstructed bowel loops demonstrates edema and there is a small amount of free fluid in the pelvis. No pneumatosis or free air is identified. The abdominal wall demonstrates muscle atrophy and significant diastases. The gallbladder is small or absent. There are bilateral renal cysts the largest on the right measuring up to 6.6 cm in diameter. 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 Scattered atherosclerotic plaque in the aorta and its major branches. Hysterectomy. Mild scarring or atelectasis in the imaged lung bases. A calcification inferior to the bladder along the vaginal cuff could represent a calculus within a urethral diverticulum, but is nonspecific and measures about 11 x 5 mm. The liver, pancreas, spleen, adrenal glands and large bowel are normal in appearance. IMPRESSION: 1. Mid to distal small bowel obstruction with transition point in the right lower quadrant. The distalmost obstructed loop demonstrates mild wall thickening and mesenteric edema. There is a small volume of free fluid in the pelvis. Jimi Martínez MD 10/30/19 0841 Thank you for allowing us to participate in the care of your patient.
== END 2019-10-29 23:57 | disposition short-term general hospital (02) ==
LOC: VM.ED 20:10
DX: K56.609 Unspecified intestinal obstruction, unspecified as to partial versus complete obstruction (principal); Z79.899 Other long term (current) drug therapy
CPT/HCPCS: 36415; 74177; 80048; 81001; 83605; 85025; 87040; 96374; 96375; 96376; 99284-GF; 99285-25; J0696; J2405; J3010; Q9967

== ENCOUNTER 2019-11-09 14:25 | Inpatient (IN) | payer MEDICARE, OTHER ==
--- NOTE | 2019-11-10 12:27 | PCM.HP.2 ---
H&P History of Present Illness - General Date of Service: 11/10/19 Admit Problem/Dx: Admission Diagnosis/Problem Admission Diagnosis/Problem Small bowel obstruction Source of Information: Patient, Old Records History Limitations: Reports: No Limitations - History of Present Illness Initial Comments - Free Text/Narative: Mrs. Narayan is an 89 yo female with PMH of anemia, osteoporosis, OA, cataracts, and glaucoma who is admitted to swing bed for strengthening prior to return home. She was hospitalized at [facility] 10/30/19-11/10/19 for a small bowel obstruction. This did require an ex lap with lysis of adhesions on 10/31 followed by small bowel anastomosis and abdominal closure on 11/02. Her hospitalization was complicated by a slow return of bowel function. She was kept NPO from 10/30 until 11/04 and was provided maintenance IV fluids. She was then started on TPN on 11/04 due to ongoing ileus. She was then started on clear liquids on 11/05 and her diet was subsequently advanced as she tolerated TPN was continued until 11/08 when her oral intake was deemed adequate. Her pain was initially controlled with a TACK PICKER and then she was weaned to oral medications as able, eventually transitioning to only tylenol for pain control. She had expected electrolyte disturbances related to the above issues, which were all replaced and appropriately corrected. She was noted to have acute on chronic anemia as well for which she received iron infusions. She was evaluated by PT and OT and further strengthening was recommended prior to her return home. Therefore, she was transferred to [facility] swing bed. Upon arrival to the floor, she states that she is doing ok. She is surprised how weak she got just from being in the hospital. Her abdomen is sore but she is not having significant pain. Nursing staff note that she does have some redness in certain spots around her incision. She notes that she is still more distended than her baseline but states this has not gotten worse. Her appetite is not great but she has not had nausea or vomiting. She had a bowel movement today and is passing gas. She denies any fever or chills. ROS is otherwise negative. She is not using her glaucoma drops as she had stents put in with her cataract surgery and was told by her environmental technician that she does not need the drops anymore. - Related Data Allergies/Adverse Reactions: Allergies Allergy/AdvReac Type Severity Reaction Status Date / Time No Known Allergies Allergy Verified 10/29/19 21:20 Home Medications: Home Meds Brimonidine Tartrate [Alphagan P 0.1% Ophth Soln] 1 drop EYEBOTH BID 05/04/18 [ History] Calcium Carb, Citrate/Vit D3 [Calcium + D3 ER Tablet] 1 each PO BEDTIME [History] Latanoprost 1 drop EYEBOTH BEDTIME 05/04/18 [History] Multivitamin [Multivitamins] 1 each PO DAILY 05/04/18 [History] Acetaminophen 650 mg PO Q4HR 11/10/19 [History] Glucosam/Chond-MSM 2/C/D3/Geo [Peggtmsoho-Bsqilklyvug-CZZ] 1 tab PO BEDTIME 10/19 [History] Polyethylene Glycol 3350 [MiraLAX] 1 packet PO DAILY 11/10/19 [History] Past Medical History HEENT History: Reports: Cataract, Glaucoma, Impaired Vision, Other (See Below) Other HEENT History: Patient wears glasses Cardiovascular History: Reports: None Respiratory History: Reports: None Gastrointestinal History: Reports: Bowel Obstruction, Hiatal Hernia Other Gastrointestinal History: Patient had a hernia repair in 11/03 and a kink in her colon 11/09 Genitourinary History: Reports: None Other Genitourinary History: Patient had a bladder sling 03/2000 and bladder repair CAMP DIRECTOR History: Reports: Other OB/BYN 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 Patient had two children Musculoskeletal History: Reports: Osteoarthritis Other Musculoskeletal History: Receives an injection twice a year. 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) Psychiatric History: Reports: None Endocrine/Metabolic History: Reports: None Hematologic History: Reports: Anemia Immunologic History: Reports: None Oncologic (Cancer) History: Reports: Squamous Cell Carcinoma Dermatologic History: Reports: None - Past Surgical History GI Surgical History: Reports: Colon, Hernia, Abdominal, Hernia Repair/Other, Lysis of Adhesions, Small Bowel Female Surgical History: Reports: Hysterectomy Social & Family History - Family History HEENT: Reports: Glaucoma Cardiac: Reports: Hypertension Oncologic: Reports: Breast - Tobacco Use Smoking Status *Q: Former Smoker - Alcohol Use Alcohol Use History: No Alcohol Use in Last Twelve Months: No - Recreational Drug Use Recreational Drug Use: No - Living Situation & Occupation Living situation: Reports: , Alone Occupation: Retired H&P Review of Systems - Review of Systems: Review Of Systems: See Below General: Reports: No Symptoms HEENT: Reports: No Symptoms Pulmonary: Reports: No Symptoms Cardiovascular: Reports: No Symptoms Gastrointestinal: Reports: Abdominal Pain Genitourinary: Reports: No Symptoms Musculoskeletal: Reports: No Symptoms Skin: Reports: No Symptoms Psychiatric: Reports: No Symptoms Neurological: Reports: No Symptoms Exam - Exam Exam: See Below - Exam General: Alert, Oriented, Cooperative HEENT: Conjunctiva Clear, Mucosa Moist & [place], Posterior Pharynx Clear, Pupils Equal, Pupils Reactive Neck: Supple, Trachea Midline. No: Lymphadenopathy, Thyromegaly Lungs: Clear to Auscultation, Normal Respiratory Effort Cardiovascular: Regular Rate, Regular Rhythm, Normal S1, Normal S2 GI/Abdominal Exam: Normal Bowel Sounds, Soft, No Organomegaly, No Mass, Distended, Tender (as expected at this point postoperatively), Other (central incision is well approximated; she does have areas of erythema and induration but these areas are not warm or tender to touch) Extremities: Normal Inspection, Non-Tender, No Pedal Edema, Normal Capillary Refill Peripheral Pulses: 2+: Radial (L), Radial (R) Skin: Warm, Dry, Intact *Q Meaningful Use (ADM) - VTE *Q VTE Anticoagulation Contraindications: Med/TX Not Indicated/Need - Problem List (1) Generalized weakness SNOMED Code(s): 06245094 ICD Code: R53.1 - WEAKNESS Status: Acute Current Visit: No (2) Bowel obstruction SNOMED Code(s): 48037589 ICD Code: K56.609 - UNSP INTESTNL OBST, UNSP TO PARTIAL VERSUS COMPLETE OBST Status: Resolved Current Visit: No Qualifiers: Intestinal obstruction type: obstruction due to adhesions Intestinal obstruction extent: complete Qualified Code(s): K56.52 - Intestinal adhesions [bands] with complete obstruction (3) Electrolyte abnormality SNOMED Code(s): 302507572 ICD Code: E87.8 - OTH DISORDERS OF ELECTROLYTE AND FLUID BALANCE, NEC Status: Acute Current Visit: No (4) Anemia SNOMED Code(s): 870265125 ICD Code: D64.9 - ANEMIA, UNSPECIFIED Status: Acute Current Visit: No Qualifiers: Anemia type: iron deficiency Iron deficiency anemia type: unspecified iron deficiency Qualified Code(s): D50.9 - Iron deficiency anemia, unspecified (5) Glaucoma SNOMED Code(s): 78431975 ICD Code: H40.9 - UNSPECIFIED GLAUCOMA Status: Chronic Current Visit: No Qualifiers: Glaucoma type: unspecified Laterality: unspecified laterality Qualified Code(s): H40.9 - Unspecified glaucoma Problem List Initiated/Reviewed/Updated: Yes Orders Last 24hrs: Active Orders 24 hr Category Date Time Status Patient Status [ADT] Routine ADT 11/10/19 12:07 Ordered Notify Provider Vital Signs [RC] ASDIRECTED Care 11/10/19 12:09 Ordered Oxygen Therapy [RC] PRN Care 11/10/19 12:07 Ordered Up With Assistance [RC] ASDIRECTED Care 11/10/19 12:07 Ordered VTE/DVT Education [RC] PER UNIT ROUTINE Care 11/10/19 12:07 Ordered Vital Signs [RC] PER UNIT ROUTINE Care 11/10/19 12:07 Ordered OT Evaluation and Treatment [CONS] Routine Cons 11/10/19 12:07 Ordered PT Evaluation and Treatment [CONS] Routine Cons 11/10/19 12:07 Ordered Regular Diet [DIET] Diet 11/10/19 Dinner Ordered Anticoagulation Contraindications VTE [AST] Routine Oth 11/10/19 12:07 Ordered Resuscitation Status Routine Resus Stat 11/10/19 12:07 Ordered Assessment/Plan Comment:: 89 yo female admitted to swing bed for strengthening prior to return home after a prolonged hospitalization in [place]. #1 Generalized Weakness - Patient is deconditioned due to her long hospitalization. - PT and OT consults ordered. #2 SBO s/p ex lap with lysis of adhesions (10/31) followed by small bowel anastomosis and abdominal closure (11/02) - Patient is now on a regular diet and doing well. - Continue tylenol PRN for pain. - Incisional redness is not consistent in appearance with infection. Will monitor daily for now and consider antibiotics if worsening. - Her surgical follow-up appointment is scheduled. #3 Electrolyte abnormalities #4 Acute on chronic anemia s/p venofer infusion - Will plan recheck of lab early next week, sooner as indicated by patient symptoms. #5 Glaucoma - Drops discontinued by her eye provider. Patient is admitted to swing bed - timing of discharge to home will depend on how she does with PT and OT. Continue medications as per her hospital discharge list. Code status is full - discussed with patient on admission. No indication for VTE prophylaxis at this time.
--- NOTE | 2019-11-11 09:03 | PCM.SN ---
- Free Text/Narrative Note: Patient seen today for incision check. The redness and induration remains inside the previously drawn outlines. Patient to notify nursing if this extends outside of the lines drawn. Patient has some cramping today and has not passed gas or had a BM since yesterday am. She is to let nursing know if this continues throughout the day as we would then likely proceed with bowel rest for 24 hours in hopes of avoiding any significant ileus or SBO.
[2019-11-11] MEDS: Polyethylene Glycol 3350 Powder 17 GM Packet PO SCH (09:20)
[2019-11-11] MEDS: Acetaminophen 325 MG Tab PO PRN (14:46)
[2019-11-12] MEDS: Acetaminophen 325 MG Tab PO PRN ×2 (02:01→19:37)
[2019-11-12] MEDS: Polyethylene Glycol 3350 Powder 17 GM Packet PO SCH ×2 (08:36→18:36)
[2019-11-12] MEDS ORDERED: Benzocaine/Cetylpyridinium/Menthol Lozenge MUCMEM PRN (19:11)
[2019-11-13] MEDS: Polyethylene Glycol 3350 Powder 17 GM Packet PO SCH (14:16)
[2019-11-13] MEDS: Acetaminophen 325 MG Tab PO PRN (14:18)
[2019-11-14] MEDS: Polyethylene Glycol 3350 Powder 17 GM Packet PO SCH (08:16)
[2019-11-14] MEDS: Acetaminophen 325 MG Tab PO PRN (08:27)
[2019-11-15 06:57] LABS: CHLORIDE,CL 103 mmol/L (98-107); SODIUM,NA 138 mmol/L (136-145)
[2019-11-15 06:58] LABS: ANION GAP 15.6 mmol/L (10-20)
[2019-11-15] MEDS: Polyethylene Glycol 3350 Powder 17 GM Packet PO SCH (07:40)
[2019-11-16] MEDS: Polyethylene Glycol 3350 Powder 17 GM Packet PO SCH (08:50)
--- NOTE | 2019-11-16 17:09 | PN ---
Progress Note for KERRY STACY Date: 11/16/2019 Room #: VM.205 SUBJECTIVE: This is an 89-year-old on swing bed recovering after bowel surgery due to obstruction. She had a laparotomy. She had been on antibiotics but not since coming here. It was a little bit red. I looked at it today. It looked fine. Her pain is under good control. She has not required any narcotics. She has been eating nearly a 100% of her meals, working with therapies and walking. It sounds like she will be able to go home may be even later this week. She did get some IV iron in [place]. She had been getting quite tired by the afternoon. She has not noticed it as much here. OBJECTIVE: Vital Signs: Her temperature is 98.3, pulse 89, blood pressure 108/55, respiratory rate 17, and O2 of 96 on room air. General: She is in no acute distress. Heart: Regular rate and rhythm. S1, S2 without murmur. Lungs: Lung sounds are clear to auscultation bilaterally without crackles or wheezes except for some faint crackles in the left base. Incentive spirometry is found in her room. She will start using it. Abdomen: Positive bowel sounds. Soft, nontender. Midline ez intact. Minimal redness. No drainage. Mental Status: She is alert. She is orientated x3. LABORATORY WORK: From yesterday looked excellent. Hemoglobin 8.9. Sodium 138, creatinine 0.4, calcium 8.2, and magnesium 1.9. ASSESSMENT: 1. Postoperative from an exploratory laparotomy with lysis of adhesions on 10/31/2019 followed by small-bowel anastomosis and abdominal closure on 11/02/2019. 2. Chronic iron-deficiency anemia. 3. Generalized weakness due to the above. 4. Glaucoma. PLAN: At this point, the patient will continue swing bed cares to work with therapies. We will get her using her incentive spirometry more. We will repeat lab work on the day she goes home with a ferritin to decide on her next rounds of iron infusions. MKA: 11/16/2019 16:24:13 MODL: 11/16/2019 16:53:37 /[id number]
[2019-11-17] MEDS: Polyethylene Glycol 3350 Powder 17 GM Packet PO SCH (07:57)
[2019-11-18] MEDS: Polyethylene Glycol 3350 Powder 17 GM Packet PO SCH (08:25)
--- NOTE | 2019-11-18 09:49 | PCM.SN ---
- Free Text/Narrative Note: Patient had 3 loose stools this AM so declined to go down for post op appt. Surgery called they said ok for us to remove ez per the nurse. She had been on ABX while at [place]. She is also on Miralax now. We will stop that and if loose stools continue will check for c. diff. Incision was seen by me yesterday and looked ok other than some minor redness at the lower end. I think it will improve with the ez coming out. Patient doing well likely home Friday.
[2019-11-19 09:09] LABS: CHLORIDE,CL 103 mmol/L (98-107); SODIUM,NA 139 mmol/L (136-145)
[2019-11-19 09:10] LABS: ANION GAP 15.3 mmol/L (10-20)
[2019-11-19] MEDS ORDERED: Potassium Chloride 10 MEQ Tab.ER PO ONE ×2 (13:09→15:15)
[2019-11-22 05:03] VITALS: BP 94/51; PULSE 84
[2019-11-22 07:46] LABS: ANION GAP 16.4 mmol/L (10-20); CHLORIDE,CL 103 mmol/L (98-107); SODIUM,NA 140 mmol/L (136-145)
[2019-11-22] MEDS ORDERED: Potassium Chloride 10 MEQ Tab.ER PO ONE (08:09)
--- NOTE | 2019-11-23 04:00 | DISCH ---
PRIMARY DISCHARGE DIAGNOSIS: Postoperative from 2 bowel surgeries due to obstruction. The first was on 10/31/2019, exploratory laparotomy and lysis of adhesions followed by small bowel anastomosis and abdominal closure on 11/02/2019. SECONDARY DISCHARGE DIAGNOSES: 1. Chronic iron deficiency anemia. 2. Generalized weakness due to chronic iron deficiency anemia. 3. Glaucoma, able to be weaned off eyedrops due to eye surgeries. REASON FOR ADMISSION: On the date of admission, this 89-year-old female was transferred from the [facility] for further recovery. She had been weaned off her TPN. She was tolerating a diet. She was getting up. She was working with therapies. She had her abdominal incision inspected. She did not require any further antibiotics. She had her ez removed here as she was having some diarrhea on the day of her appointment in [place]. We discontinued her MiraLax and she had no further problems. The patient was not having any breathing issues. She was not short of breath. PHYSICAL EXAMINATION: Vital Signs: Objectively, on discharge, her temperature 98.2, pulse 84, blood pressure 94/51, respiratory rate 18, and O2 96 on room air. General: She is in no acute distress. Heart: Regular rate and rhythm. S1 and S2 without murmur. Lungs: Sounds are clear to auscultation bilaterally without crackles or wheezes. Abdomen: Positive bowel sounds. Soft, nondistended, and nontender. Midline incision is well healed. There is just some tiny bit of drainage at the midline. No surrounding redness. No warmth. Mental Status: She is alert. She is orientated x3. LABORATORY DATA: Lab work today did show her to have a white count normal at 5.7; hemoglobin 8.8, which is stable for her; and platelets 380. Sodium 140 and potassium 3.4. She did receive a dose of oral potassium. Chloride 103, bicarb 24, BUN 10, creatinine 0.4, glucose 93, calcium 8.4, iron 32, TIBC 178, percent saturation 18, and ferritin done earlier in the stay was 707. She did receive some IV iron in [place]. DISCHARGE PLANS/INSTRUCTIONS: She will follow up with Dr. Knapp in the clinic in 1 to 2 weeks time for post hospital followup with lab work to check on her iron deficiency anemia. Otherwise, she did talk about taking calcium supplements. At this point, I did state I am okay with her not taking her supplements until she further recovers in getting calcium more in her diet. Otherwise, she was on no prescription medications. Date of her rtiw-cu-misz encounter occurred with me on 11/22/2019. Primary reason for home health is due to a major abdominal surgery requiring nursing for teaching and assessments and also monitoring of her blood pressure which does tend to run slightly low as well as physical therapy to work on mobility and home safety. Otherwise, she is homebound due to her recent event with the surgery and absences from home will be infrequent and require taxing effort. Her daughter is also coming to stay with her, which she did mention had shingles. She does not recall having chickenpox, but she did raise her children who had chickenpox. Otherwise, I will periodically review this plan of care. MKA: 11/22/2019 17:12:27 MODL: 11/23/2019 03:51:34 /[id number]
== END 2019-11-22 13:17 | disposition home health service (06) | DRG 948 ==
LOC: VM.MS 11-10 12:56
PROVIDERS: ADMIT Family Medicine; ATTEND Internal Medicine
DX: R53.1 Weakness (principal); K56.52 Intestinal adhesions [bands] with complete obstruction; D50.9 Iron deficiency anemia, unspecified; M81.0 Age-related osteoporosis without current pathological fracture; H40.9 Unspecified glaucoma; H54.7 Unspecified visual loss; K44.9 Diaphragmatic hernia without obstruction or gangrene; M19.90 Unspecified osteoarthritis, unspecified site; E87.8 Other disorders of electrolyte and fluid balance, not elsewhere classified; Z98.890 Other specified postprocedural states; Z79.899 Other long term (current) drug therapy; Z90.710 Acquired absence of both cervix and uterus; Z87.891 Personal history of nicotine dependence
CPT/HCPCS: 36415; 80048; 82728; 83540; 83550; 83735; 85025; 85027; 97110-GO; 97110-GP; 97116-GP; 97161-GP; 97165-GO; 97530-GP; 97535-GO; A9270-GY

== ENCOUNTER 2020-07-28 19:29 | Emergency (ER) | payer MEDICARE, OTHER ==
[2020-07-28] MEDS ORDERED: Sodium Chloride 0.9% 10 ML Syringe FLUSH PRN (19:34)
[2020-07-28] MEDS ORDERED: Morphine 4 MG/ML Syringe IVPUSH ONE ×2 (19:36→21:24)
[2020-07-28] MEDS ORDERED: Lidocaine 1% 30 ML SDV INJECT ONE (19:36)
[2020-07-28] MEDS ORDERED: Ondansetron 4 MG/2 ML SDV IVPUSH ONE (19:42)
[2020-07-28 19:47] VITALS: BP 133/69; PULSE 76
--- NOTE | 2020-07-28 19:50 | EDM.PDOC ---
ED HPI GENERAL MEDICAL PROBLEM - General Chief Complaint: General Stated Complaint: ER Time Seen by Provider: 07/28/20 19:29 Source of Information: Reports: Patient, EMS, EMS Notes Reviewed, RN History Limitations: Reports: No Limitations - History of Present Illness INITIAL COMMENTS - FREE TEXT/NARRATIVE: Pt. presents to ER with complaints of injury due to fall from a treadmill. She states that she hasn't used if for a long time and thinks it was going to fast. She misstepped and fell, injuring her head and R shoulder/upper arm. She also struck her head and sustained a R eyebrow laceration. Denies any LOC. No nausea or vomiting post fall. She also complains of an abrasion to R roberts. Pt. states that she recalls the entire event. Denies any chest pain, shortness of breath, lightheadedness, or palpitations prior to the fall. She affirmed several times that it was a mechanical fall with no symptoms prior. Pt. was transported to ER via EMS. Denies any neck pain. Denies any blurred vision. Denies any headache, other than pain over R eye. She presents to ER with her R arm in a sling and swathe. Onset: Today Onset Date: 07/28/20 Location: Reports: Head, Upper Extremity, Right, Lower Extremity, Right Right Upper Arm Pain Score (Numeric/FACES): 10 - Related Data Allergies Allergy/AdvReac Type Severity Reaction Status Date / Time No Known Allergies Allergy Verified 07/28/20 20:21 Home Meds: Home Meds Acetaminophen 650 mg PO Q4HR 11/10/19 [History] Multivitamin [Multivitamins] 1 each PO DAILY #0 11/21/19 [Rx] polyethylene glycoL 3350 [MiraLAX] 1 packet PO DAILY PRN #0 11/21/19 [Rx] Denosumab [Prolia] 60 mg SQ ASDIRECTED 07/28/20 [History] Ferrous Gluconate 324 mg PO ASDIRECTED 07/28/20 [History] Glucosamine/D3/Boswellia Urvashi [Osteo Bi-Flex Caplet] 1 each PO BEDTIME 07/28/20 [History] Past Medical History HEENT History: Reports: Cataract, Glaucoma, Impaired Vision, Other (See Below) Other HEENT History: Patient wears glasses Cardiovascular History: Reports: None Respiratory History: Reports: None Gastrointestinal History: Reports: Bowel Obstruction, Hiatal Hernia Other Gastrointestinal History: Patient had a hernia repair in 11/03 and a kink in her colon 11/09 Genitourinary History: Reports: None Other Genitourinary History: Patient had a bladder sling 03/2000 and bladder repair MEDICAL OFFICE TECHNICIAN History: Reports: Other MEDICAL OFFICE TECHNICIAN 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 Patient had two children Musculoskeletal History: Reports: Osteoarthritis Other Musculoskeletal History: Receives an injection twice a year. 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) Psychiatric History: Reports: None Endocrine/Metabolic History: Reports: None Hematologic History: Reports: Anemia Immunologic History: Reports: None Oncologic (Cancer) History: Reports: Squamous Cell Carcinoma Dermatologic History: Reports: None - Past Surgical History GI Surgical History: Reports: Colon, Hernia, Abdominal, Hernia Repair/Other, Lysis of Adhesions, Small Bowel Female Surgical History: Reports: Hysterectomy Social & Family History - Family History HEENT: Reports: Glaucoma Cardiac: Reports: Hypertension Oncologic: Reports: Breast - Caffeine Use Caffeine Use: Reports: Coffee - Living Situation & Occupation Living situation: Reports: , Alone Occupation: Retired ED ROS GENERAL - Review of Systems Review Of Systems: See Below Constitutional: Reports: No Symptoms HEENT: Reports: Other (R sided forehead laceration) Respiratory: Reports: No Symptoms Cardiovascular: Reports: No Symptoms Endocrine: Reports: No Symptoms GI/Abdominal: Reports: No Symptoms : Reports: No Symptoms Musculoskeletal: Reports: Joint Pain (R shoulder), Other (Abrasion to R roberts) Skin: Reports: Pallor Neurological: Reports: No Symptoms, Seizure, Syncope. Denies: Confusion, Dizziness, Headache, Paresthesia, Tremors, Trouble Speaking Psychiatric: Reports: No Symptoms Hematologic/Lymphatic: Reports: No Symptoms Immunologic: Reports: No Symptoms ED EXAM, GENERAL - Physical Exam Exam: See Below Exam Limited By: No Limitations General Appearance: Alert, WD/WN, No Apparent Distress Eye Exam: Bilateral Eye: EOMI, Normal Fundi, Normal Inspection, PERRL Ears: Hearing Grossly Normal Throat/Mouth: Normal Inspection, Normal Lips, Normal Teeth, Normal Voice, No Airway Compromise Head: Other (3 cm laceration above/in R eyebrow) Neck: Normal Inspection, Supple, Non-Tender, Full Range of Motion Respiratory/Chest: No Respiratory Distress, Lungs Clear, Normal Breath Sounds, No Accessory Muscle Use, Chest Non-Tender Cardiovascular: Normal Peripheral Pulses, Regular Rate, Rhythm, No Edema, No Gallop, No JVD, No Murmur, No Rub Peripheral Pulses: 3+: Radial (R) GI/Abdominal: Soft, Non-Tender, No Distention, No Mass (Female) Exam: Deferred Rectal (Female) Exam: Deferred Back Exam: Normal Inspection, Full Range of Motion Extremities: Arm Pain, Other (obvious deformity and decreased ROM to R arm/shoulder. Superficial abrasion to R roberts.) Neurological: Alert, Oriented, CN II-XII Intact, Normal Cognition, Normal Gait, Normal Reflexes, No Motor/Sensory Deficits Skin Exam: Warm, Dry, Intact, Pallor Lymphatic: No Adenopathy ED GENERAL MEDICAL PROCEDURES - Laceration/Wound Repair Right Forehead Lac/wound length in cm: 3 Appearance: Subcutaneous Local Anesthesia - Lidocaine (Xylocaine): 1% Plain Local Anesthetic Volume: 4cc Skin Prep: Chlorhexidine (Hibiciens), Saline Exploration/Debridement/Repair: Wound Explored, Minimal Debridement Closed with: Sutures Suture Size: 5-0 Suture Type: Nylon Course - Vital Signs Last Recorded V/S: Last Vital Signs Temp 36.4 C 07/28/20 19:29 Pulse 76 07/28/20 19:29 Resp 16 07/28/20 19:29 BP 133/69 07/28/20 19:29 Pulse Ox 100 07/28/20 19:29 - Orders/Labs/Meds Orders: Active Orders 24 hr Category Date Time Status Head wo Cont [CT] Stat Exams 07/28/20 19:34 Taken Humerus Rt [CR] Stat Exams 07/28/20 19:35 Ordered COMPREHENSIVE METABOLIC PN,CMP [CHEM] Stat Lab 07/28/20 20:30 Received Sodium Chloride 0.9% [Saline Flush] Med 07/28/20 19:34 Active 10 ml FLUSH ASDIRECTED PRN Peripheral IV Insertion Adult [OM.PC] Routine Oth 07/28/20 19:34 Ordered Medication Orders Sodium Chloride (Saline Flush) 10 ml FLUSH ASDIRECTED PRN PRN Reason: Keep Vein Open Labs: Laboratory Tests 07/28/20 Range/Units 20:30 WBC 12.4 H (4.0-10.0) x10^3/uL RBC 3.49 L (4.00-5.50) x10^6/uL Hgb 8.6 L (12.0-16.0) g/dL Hct 27.8 L (33.0-47.0) % MCV 79.7 D (78.0-93.0) fL MCH 24.6 L (26.0-32.0) pg MCHC 30.9 L (32.0-36.0) g/dL RDW Coeff of Tanja 15.0 (10.0-15.0) % Plt Count 358 (130-400) x10^3/uL Neut % (Auto) 89.8 H (50.0-80.0) % Lymph % (Auto) 3.5 L (25.0-50.0) % [place] % (Auto) 6.3 (2.0-11.0) % Eos % (Auto) 0.1 (0.0-4.0) % Baso % (Auto) 0.3 (0.2-1.2) % Meds: Medications Generic Name Dose Route Start Last Admin Trade Name Freq PRN Reason Stop Dose Admin Sodium Chloride 10 ml 07/28/20 19:34 Saline Flush FLUSH ASDIRECTED PRN Keep Vein Open Discontinued Medications Generic Name Dose Route Start Last Admin Trade Name Freq PRN Reason Stop Dose Admin Lidocaine HCl 30 ml 07/28/20 19:36 07/28/20 19:47 Xylocaine-Mpf 1% INJECT 07/28/20 19:37 30 ml ONETIME ONE Administration Morphine Sulfate 4 mg 07/28/20 19:36 07/28/20 19:51 Morphine IVPUSH 07/28/20 19:37 4 mg ONETIME ONE Administration Ondansetron HCl 4 mg 07/28/20 19:42 07/28/20 19:50 Zofran IVPUSH 07/28/20 19:43 4 mg ONETIME ONE Administration - Radiology Interpretation Free Text/Narrative:: Dislocation of R shoulder with what appears to be a Bankhardt lesion. Awaiting results of head CT at this time. Departure - Departure Time of Disposition: 21:00 Disposition: DC/Tfer to Acute Hospital 02 Clinical Impression: Anterior shoulder dislocation, Laceration - Discharge Information Referrals: Alecia Knapp DO [Primary Care Provider] - Forms: ED Department Discharge Sepsis Event Note (ED) - Focused Exam Vital Signs: Vital Signs Temp Pulse Resp BP Pulse Ox 07/28/20 19:29 36.4 C 76 16 133/69 100 - Problem List Review Problem List Initiated/Reviewed/Updated: Yes - My Orders Last 24 Hours: My Active Orders 07/28/20 19:34 Head wo Cont [CT] Stat Sodium Chloride 0.9% [Saline Flush] 10 ml FLUSH ASDIRECTED PRN Peripheral IV Insertion Adult [OM.PC] Routine 07/28/20 19:35 Humerus Rt [CR] Stat 07/28/20 20:30 COMPREHENSIVE METABOLIC PN,CMP [CHEM] Stat - Assessment/Plan Last 24 Hours: My Active Orders 07/28/20 19:34 Head wo Cont [CT] Stat Sodium Chloride 0.9% [Saline Flush] 10 ml FLUSH ASDIRECTED PRN Peripheral IV Insertion Adult [OM.PC] Routine 07/28/20 19:35 Humerus Rt [CR] Stat 07/28/20 20:30 COMPREHENSIVE METABOLIC PN,CMP [CHEM] Stat Plan: Pt. will be transferred to [place] [facility] for reduction. I do not have an compensation programs manager commercial subcontractor tonight, and only one nurse in the ER. Pt. will be transported via [facility] ground ambulance. Pt. is a code 1.
[2020-07-28 20:56] LABS: CHLORIDE,CL 102 mmol/L (98-107); SODIUM,NA 138 mmol/L (136-145)
[2020-07-28 20:57] LABS: ANION GAP 14.6 mmol/L (10-20)
[2020-07-28] MEDS ORDERED: Morphine 4 MG/ML Syringe ONE (21:34)
--- NOTE | 2020-07-31 10:39 | CR ---
[id number] RAD/RAD Humerus Right 2V EXAM: RAD Humerus Right 2V CLINICAL DATA: TRAUMA COMPARISON: NO PREVIOUS SIMILAR EXAM IS AVAILABLE. FINDINGS: Anterior inferior dislocation is seen There may be a Bankart lesion. IMPRESSION: ANTERIOR INFERIOR DISLOCATION Wallace Arce MD 07/31/20 [id number] Thank you for allowing us to participate in the care of your patient.
--- NOTE | 2020-07-31 10:39 | CT ---
[id number] CT/CT Head WO IV EXAM: CT Head WO IV CLINICAL DATA: TRAUMA COMPARISON: CORRELATION IS MADE WITH MARCH 03, 2017 FINDINGS: There is no mass or mass effect. There is no hemorrhage or hydrocephalus. There are no extra-axial fluid collections. There are no sites of abnormal attenuation. IMPRESSION: NO PLAIN CT EVIDENCE OF ACUTE INTRACRANIAL PROCESS. Wallace Arce MD 07/31/20 1038 Thank you for allowing us to participate in the care of your patient.
== END 2020-07-28 21:38 | disposition short-term general hospital (02) ==
LOC: VM.ED 19:29
DX: S43.004A Unspecified dislocation of right shoulder joint, initial encounter (principal); S01.81XA Laceration without foreign body of other part of head, initial encounter; S80.811A Abrasion, right lower leg, initial encounter; Z90.710 Acquired absence of both cervix and uterus; Z79.899 Other long term (current) drug therapy; W01.0XXA Fall on same level from slipping, tripping and stumbling without subsequent striking against object, initial encounter; Y93.A1 Activity, exercise machines primarily for cardiorespiratory conditioning
CPT/HCPCS: 12013; 36415; 70450; 73060; 80053; 85025; 96374; 96375; 96376; 99285; J2001; J2270; J2405; 99283

== ENCOUNTER 2020-08-01 13:31 | Inpatient (IN) | payer MEDICARE, OTHER ==
[2020-08-01] MEDS ORDERED: Polyethylene Glycol 3350 Powder 17 GM Packet PO PRN (13:50)
[2020-08-01] MEDS: Acetaminophen/HYDROcodone 325-5 MG Tab PO PRN ×2 (15:46→20:04)
[2020-08-01] MEDS ORDERED: Polyethylene Glycol 3350 Powder 17 GM Packet PO SCH (17:15)
[2020-08-01] MEDS: Glucosamine 500 MG Cap PO SCH (20:04)
[2020-08-01] MEDS: Multivitamins with Iron/Calcium/Folic Acid/Minerals Tab PO SCH (20:04)
[2020-08-01] MEDS: Polyethylene Glycol 3350 Powder 17 GM Packet PO SCH (20:04)
[2020-08-01] MEDS: Fluticasone Propionate Nasal Spray 16 GM Bottle NASBOTH SCH (20:13)
--- NOTE | 2020-08-01 22:27 | HP ---
CHIEF COMPLAINT: Right shoulder dislocation. HISTORY OF PRESENT ILLNESS: This is an 89-year-old female who on the evening of the was trying to walk on her treadmill, it started going too fast, she fell. She dislocated her right shoulder and had abrasion to the right leg as well as the forehead, which required sutures. She underwent a shoulder relocation under sedation and is having some difficulty moving it. She states they told her there was just a minimal fracture there, nothing they would do surgery for, and it was an anterior dislocation. She otherwise has not had a bowel movement now since last Friday. She has not had any cough. No shortness of breath. She was felt to require further PT and OT. She did have lab work, which included just a creatinine and kidney panel, which was all normal. She does have known chronic anemia. Her hemoglobin was 9.6. ALLERGIES: Include none. MEDICATION LIST: Includes MiraLAX p.r.n., hydrocodone which she has been using for pain 5/325, Prolia every 6 months, iron 324 every other day, Flonase, Tylenol as needed, multivitamin, and glucosamine. PAST MEDICAL HISTORY: Includes iron deficiency anemia, history of hernia with abdominal surgery in the past for small bowel obstruction, senile osteoporosis, squamous cell skin cancer. PAST SURGICAL HISTORY: She has had the ventral hernia repair. Back in 2009, she has had squamous cell skin cancers removed. She has had cataract surgery. She has had a hysterectomy. She has had a couple of exploratory laparotomies for bowel obstruction and lysis of adhesions. The last was in 10/2019 and had a resection. She has had a right groin hernia surgery and an open bladder repair. FAMILY HISTORY: Both parents are . SOCIAL HISTORY: She lives at home independently. She is . She has 2 children. Her son . Her daughter is still living. REVIEW OF SYSTEMS: General: She has no fever, no chills. HEENT: No trouble swallowing. Cardiac: No chest pain. No palpitations. Respiratory: No cough. No shortness of breath. Abdomen: No abdominal pain, but no bowel movement for several days. Otherwise, all systems reviewed and found to be negative unless otherwise stated. The patient did hit her head. She is not having any headaches. She had a CT scan, which did not show any bleeding. PHYSICAL EXAMINATION: Vital Signs: Her temperature is 98.2, weight 54.6 kg, pulse 74, blood pressure 108/50, respiratory rate 17, O2 of 98% on room air. General: She is in no acute distress. Heart: Regular rate and rhythm. S1, S2 without murmur. Lungs: Lung sounds are clear to auscultation bilaterally without crackles or wheezes. Extremities: No edema. No tenderness. The right arm is examined. She has a little bit of bruising. Range of motion is limited. There is no crepitus. Her right rib cage also has some tenderness, but she does not have any crepitus there. Mental Status: She is alert and oriented x3. ASSESSMENT: 1. Right shoulder dislocation, anterior. She will be working with therapies. 2. Chronic iron deficiency anemia. We will check a hemoglobin on Friday. 3. Constipation. We will go ahead and schedule her MiraLAX. 4. Osteoporosis. She does not need any current changes in treatment. She had no fractures. 5. Pain control. She is on Tylenol. 6. Deep venous thrombosis prophylaxis. We will place her on some sequential compression devices. PLAN: The patient is admitted to swing bed care. She will be up working with therapies. Anticipate a short stay before returning home. We will have her work with PT and OT. MKA: 08/01/2020 17:30:15 MODL: 08/01/2020 22:16:26 /[id number]
[2020-08-02] MEDS: Acetaminophen/HYDROcodone 325-5 MG Tab PO PRN ×3 (05:17→17:14)
[2020-08-02] MEDS: Ferrous Sulfate 325 MG Tab PO SCH (07:56)
[2020-08-02] MEDS: Fluticasone Propionate Nasal Spray 16 GM Bottle NASBOTH SCH ×2 (07:56→20:50)
[2020-08-02] MEDS ORDERED: Bisacodyl 10 MG Supp RECTAL ONE (20:00)
[2020-08-02] MEDS: Multivitamins with Iron/Calcium/Folic Acid/Minerals Tab PO SCH (20:20)
[2020-08-02] MEDS: Polyethylene Glycol 3350 Powder 17 GM Packet PO SCH (20:20)
[2020-08-02] MEDS: Acetaminophen 325 MG Tab PO PRN (20:20)
[2020-08-02] MEDS: Glucosamine 500 MG Cap PO SCH (20:20)
[2020-08-03] MEDS: Acetaminophen/HYDROcodone 325-5 MG Tab PO PRN ×4 (00:14→23:08)
[2020-08-03] MEDS: Acetaminophen 325 MG Tab PO PRN (05:30)
[2020-08-03] MEDS: Fluticasone Propionate Nasal Spray 16 GM Bottle NASBOTH SCH ×2 (08:27→19:52)
[2020-08-03] MEDS: Glucosamine 500 MG Cap PO SCH (19:52)
[2020-08-03] MEDS: Multivitamins with Iron/Calcium/Folic Acid/Minerals Tab PO SCH (19:53)
[2020-08-03] MEDS: Polyethylene Glycol 3350 Powder 17 GM Packet PO SCH (19:53)
[2020-08-04] MEDS: Acetaminophen 325 MG Tab PO PRN (03:37)
[2020-08-04] MEDS: Fluticasone Propionate Nasal Spray 16 GM Bottle NASBOTH SCH ×2 (08:32→21:31)
[2020-08-04] MEDS: Ferrous Sulfate 325 MG Tab PO SCH (08:32)
[2020-08-04] MEDS: Acetaminophen/HYDROcodone 325-5 MG Tab PO PRN ×3 (08:33→18:37)
--- NOTE | 2020-08-04 17:37 | PCM.SN.2 ---
- Free Text/Narrative Note: hgb down slightly from recent labs it wasn't check while in [place]. Patient progressing well with therapies likely home next week. Repeat CBC Friday. patient has required IV iron previously.
[2020-08-04] MEDS: Multivitamins with Iron/Calcium/Folic Acid/Minerals Tab PO SCH (21:30)
[2020-08-04] MEDS: Glucosamine 500 MG Cap PO SCH (21:30)
[2020-08-04] MEDS: Polyethylene Glycol 3350 Powder 17 GM Packet PO SCH (21:30)
[2020-08-05] MEDS: Acetaminophen 325 MG Tab PO PRN ×3 (02:52→20:31)
[2020-08-05] MEDS: Fluticasone Propionate Nasal Spray 16 GM Bottle NASBOTH SCH ×2 (08:29→20:32)
[2020-08-05] MEDS: Multivitamins with Iron/Calcium/Folic Acid/Minerals Tab PO SCH (20:31)
[2020-08-05] MEDS: Glucosamine 500 MG Cap PO SCH (20:31)
[2020-08-05] MEDS: Polyethylene Glycol 3350 Powder 17 GM Packet PO SCH (20:31)
[2020-08-06] MEDS: Acetaminophen 325 MG Tab PO PRN ×5 (03:10→20:46)
[2020-08-06] MEDS: Fluticasone Propionate Nasal Spray 16 GM Bottle NASBOTH SCH ×2 (08:19→20:45)
[2020-08-06] MEDS: Ferrous Sulfate 325 MG Tab PO SCH (08:19)
[2020-08-06] MEDS: Glucosamine 500 MG Cap PO SCH (20:45)
[2020-08-06] MEDS: Multivitamins with Iron/Calcium/Folic Acid/Minerals Tab PO SCH (20:45)
[2020-08-06] MEDS: Polyethylene Glycol 3350 Powder 17 GM Packet PO SCH (20:45)
[2020-08-07] MEDS: Acetaminophen 325 MG Tab PO PRN ×5 (03:12→23:51)
[2020-08-07] MEDS: Fluticasone Propionate Nasal Spray 16 GM Bottle NASBOTH SCH ×2 (08:21→19:50)
[2020-08-07] MEDS: Polyethylene Glycol 3350 Powder 17 GM Packet PO SCH (19:50)
[2020-08-07] MEDS: Glucosamine 500 MG Cap PO SCH (19:51)
[2020-08-07] MEDS: Multivitamins with Iron/Calcium/Folic Acid/Minerals Tab PO SCH (19:51)
[2020-08-08] MEDS: Acetaminophen 325 MG Tab PO PRN ×4 (04:04→20:12)
[2020-08-08] MEDS: Ferrous Sulfate 325 MG Tab PO SCH (08:19)
[2020-08-08] MEDS: Fluticasone Propionate Nasal Spray 16 GM Bottle NASBOTH SCH ×2 (08:19→20:11)
--- NOTE | 2020-08-08 16:08 | PN ---
Progress Note for KERRY STACY Date: 08/08/2020 Room #: VM.204 SUBJECTIVE: An 89-year-old seen today on swing bed. She was hospitalized after a shoulder dislocation. She has been doing well. She was dressing herself over the weekend per staff. She had repeat lab work today, which did show her hemoglobin up to 8.1. She has chronic iron deficiency anemia and is on iron. Ferritin is 24. She has not had IV iron infusion. She prefers to just keep taking oral, but she does have a hard time swallowing pills, so they have been crushing them. Otherwise, she has some sutures from recent dermatologic biopsies. They have been in 2 weeks tomorrow. She would like her sutures removed. Sounds like she is going to be discharged from therapy today with plan to go home with her daughter tomorrow. OBJECTIVE: Vital Signs: Temperature 97.4, pulse 68, blood pressure 105/54, respiratory rate 18, and O2 of 96% on room air. General: She is in no acute distress. Heart: Regular rate and rhythm without murmur. Lungs: Sounds are clear to auscultation bilaterally without crackles or wheezes. Extremities: Warm and dry. No edema. Mental Status: She is alert and orientated x3. ASSESSMENT: 1. Iron deficiency anemia. The patient will have repeat lab work in a couple of weeks in the clinic. She will continue her oral iron. If difficult to swallow, she can look for liquid versions. 2. Right shoulder pain and anterior dislocation. She is doing well, working with therapy. 3. Constipation, resolved. She has not used any p.r.n. senna. 4. Osteoporosis. The patient has been on Prolia. Her next dose is due any time. 5. Pain control. She is using Tylenol. Can also use liquid if too hard to swallow pills. 6. Deep vein thrombosis prophylaxis. She has been on SCDs. PLAN: The patient will be discharged home tomorrow with family and home health. She will follow up with myself in the clinic in a couple of weeks' time for repeat lab work including iron studies. She otherwise does not need to see Orthopedics unless she has further issues with the shoulder. MKA: 08/08/2020 14:46:01 MODL: 08/08/2020 16:01:07 /[id number]
[2020-08-08] MEDS: Glucosamine 500 MG Cap PO SCH (20:12)
[2020-08-08] MEDS: Multivitamins with Iron/Calcium/Folic Acid/Minerals Tab PO SCH (20:12)
[2020-08-08] MEDS: Polyethylene Glycol 3350 Powder 17 GM Packet PO SCH (21:53)
[2020-08-09] MEDS: Acetaminophen 325 MG Tab PO PRN ×3 (04:14→08:58)
[2020-08-09 05:42] VITALS: BP 119/50; PULSE 67
[2020-08-09] MEDS: Fluticasone Propionate Nasal Spray 16 GM Bottle NASBOTH SCH (08:59)
--- NOTE | 2020-08-09 22:32 | DISCH ---
PRIMARY DISCHARGE DIAGNOSES: 1. Right shoulder dislocation from a fall. 2. Chronic iron deficiency anemia, on oral iron with improving hemoglobin up to 8.1 on discharge. 3. Constipation, probably due to some pain medications, resolved. She is now taking only Tylenol. 4. Osteoporosis. Due for Prolia later this month. 5. Deep venous thrombosis prophylaxis. She was on sequential compression devices. REASON FOR ADMISSION: On the date of admission, this 89-year-old female was hospitalized in [place] for acute care for right shoulder dislocation. Has been sent back to swing bed for further therapies. She has done quite well with PT and was working with OT. Currently, she is getting herself dressed and plan is to return home today. Her daughter from out of state will be coming. She continued on her every other day iron. She was having bowel movements. OBJECTIVE: Vital Signs: Her temperature 97.4, pulse 67, blood pressure 119/50, respiratory rate 17, and O2 of 98% on room air. General: She is in no acute distress. Heart: Regular rate and rhythm. Lungs: Sounds are clear to auscultation bilaterally without crackles or wheezes. Extremities: Warm and dry. No edema. Mental Status: She is alert and oriented x3. DISCHARGE PLANS AND INSTRUCTIONS: She will follow up with Dr. Knapp in the clinic in 2 weeks' time with a BMP and CBC and a Prolia shot. She will continue on laxatives as needed. She will get different versions of her pills like calcium if unable to swallow. No new prescription medications were sent home with her. The patient will be on Home Health for discharge. The [id number] encounter occurred with myself on 08/19/2020. Primary reasons for home health are for teaching and assessments by PT and OT for use of that right arm with recent dislocation and for nursing and a home health aide for assistance with ADLs and medications to ensure safety in her home. She is homebound due to this recent event. She should not drive with this right shoulder dislocation and absences from home are infrequent and do require the assistance of another person. I will periodically review this plan of care. MKA: 08/09/2020 16:20:29 MODL: 08/09/2020 22:23:50 /[id number]
== END 2020-08-09 12:37 | disposition home health service (06) | DRG 950 ==
LOC: VM.MS 13:31
PROVIDERS: ADMIT Internal Medicine; ATTEND Internal Medicine
DX: S43.014D Anterior dislocation of right humerus, subsequent encounter (principal); D50.9 Iron deficiency anemia, unspecified; K59.00 Constipation, unspecified; M81.0 Age-related osteoporosis without current pathological fracture; W19.XXXD Unspecified fall, subsequent encounter; Z98.890 Other specified postprocedural states; Z98.49 Cataract extraction status, unspecified eye; Z90.710 Acquired absence of both cervix and uterus
CPT/HCPCS: 36415; 82728; 85025; 97110-GP; 97116-GP; 97161-GP; 97165-GO; 97530-GP; 97535-GO; A9270-GY

== ENCOUNTER 2020-12-08 15:30 | Observation (INO) | payer MEDICARE, OTHER ==
[2020-12-08] MEDS ORDERED: Sodium Chloride 0.9% 10 ML Syringe FLUSH PRN (15:42)
[2020-12-08] MEDS ORDERED: Sodium Chloride 0.9% 1,000 ML IV SCH (15:45)
[2020-12-08 16:26] LABS: ANION GAP 16.9 mmol/L (10-20); CHLORIDE,CL 99 mmol/L (98-107); SODIUM,NA 137 mmol/L (136-145)
--- NOTE | 2020-12-08 16:35 | EDM.PDOC ---
ED HPI GENERAL MEDICAL PROBLEM - General Chief Complaint: General Time Seen by Provider: 12/08/20 15:30 Source of Information: Reports: Patient, EMS History Limitations: Reports: No Limitations - History of Present Illness INITIAL COMMENTS - FREE TEXT/NARRATIVE: Pt. presents to ER with complaints of weakness and near syncope. She states that she was standing in her home this AM and became extremely lightheaded and fell onto her R side. She was subsequently unable to get off the floor for several hours. EMS states that she was quite lightheaded when going from lying to sitting to standing. She was able to walk to the bathroom with assistance before she was transported to ER. She denies any hip/pelvic pain while standing. Pt. denies any chest pain, shortness of breath, or palpitations pre/post e pisode. No nausea, vomiting, or diarrhea. Denies any fever or chills. No abdominal pain. Denies any headache or confusion. Pt. resides in a house here in [place]. She lives by herself. Nearest loved one is in [facility][1]. She states that she gets meals on wheels every noon. Pt. was seen in ER this past fall for a fall resulting in R shoulder dislocation that required conscious sedation and reduction in ER. Onset: Today Associated Symptoms: Reports: Weakness. Denies: Confusion, Chest Pain, Cough, Diaphoresis, Fever/Chills, Headaches, Malaise, Nausea/Vomiting, Rash, Seizure, Shortness of Breath - Related Data Allergies Allergy/AdvReac Type Severity Reaction Status Date / Time No Known Allergies Allergy Verified 12/08/20 15:42 Home Meds: Home Meds Acetaminophen 650 mg PO Q4HR PRN 11/10/19 [History] Denosumab [Prolia] 60 mg SQ Q180D 07/28/20 [History] Ferrous Gluconate 324 mg PO Q48H 07/28/20 [History] Glucosamine/D3/Boswellia Urvashi [Osteo Bi-Flex Caplet] 1 each PO BEDTIME 07/28/20 [History] Fluticasone Propionate [Flonase] 1 spray NASBOTH BID 08/01/20 [History] Multivitamin [Multivitamins] 1 each PO BEDTIME 08/01/20 [History] polyethylene glycoL 3350 [MiraLAX] 17 gram PO DAILY PRN 08/01/20 [History] Docusate Sodium/Sennosides [Senna Plus] 1 tab PO BID PRN tablet 08/09/20 [Rx] Past Medical History HEENT History: Reports: Cataract, Glaucoma, Impaired Vision, Other (See Below) Other HEENT History: Patient wears glasses Cardiovascular History: Reports: None Respiratory History: Reports: None Gastrointestinal History: Reports: Bowel Obstruction, Hiatal Hernia Other Gastrointestinal History: Patient had a hernia repair in 11/03 and a kink in her colon 11/09 Genitourinary History: Reports: None Other Genitourinary History: Patient had a bladder sling 03/2000 and bladder repair CRAB BUTCHER History: Reports: Other CRAB BUTCHER 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 Patient had two children Musculoskeletal History: Reports: Osteoarthritis Other Musculoskeletal History: Receives an injection twice a year. Neurological History: Reports: Other (See Below) Psychiatric History: Reports: None Endocrine/Metabolic History: Reports: None Hematologic History: Reports: Anemia Immunologic History: Reports: None Oncologic (Cancer) History: Reports: Squamous Cell Carcinoma Dermatologic History: Reports: None - Infectious Disease History Infectious Disease History: Reports: Measles - Past Surgical History HEENT Surgical History: Reports: Cataract Surgery GI Surgical History: Reports: Colon, Hernia, Abdominal, Hernia Repair/Other, Lysis of Adhesions, Small Bowel Female Surgical History: Reports: Hysterectomy Social & Family History - Family History HEENT: Reports: Glaucoma Cardiac: Reports: Hypertension Oncologic: Reports: Breast - Tobacco Use Tobacco Use Status *Q: Unknown Ever Used Tobacco - Caffeine Use Caffeine Use: Reports: Coffee, Soda - Living Situation & Occupation Living situation: Reports: , Alone Occupation: Retired ED ROS GENERAL - Review of Systems Review Of Systems: See Below Constitutional: Reports: Weakness HEENT: Reports: No Symptoms Respiratory: Reports: No Symptoms Cardiovascular: Reports: Lightheadedness Endocrine: Reports: No Symptoms GI/Abdominal: Reports: No Symptoms : Reports: No Symptoms Musculoskeletal: Reports: No Symptoms Skin: Reports: No Symptoms Neurological: Reports: Weakness Psychiatric: Reports: No Symptoms Hematologic/Lymphatic: Reports: No Symptoms Immunologic: Reports: No Symptoms ED EXAM, GENERAL - Physical Exam Exam: See Below Exam Limited By: No Limitations General Appearance: Alert, WD/WN, No Apparent Distress Eye Exam: Bilateral Eye: Normal Fundi, Normal Inspection, PERRL Head: Atraumatic, Normocephalic Neck: Normal Inspection, Supple, Non-Tender, Full Range of Motion Respiratory/Chest: No Respiratory Distress, Lungs Clear, Normal Breath Sounds, No Accessory Muscle Use, Chest Non-Tender Cardiovascular: Normal Peripheral Pulses, Regular Rate, Rhythm, No Edema, No Gallop, No JVD GI/Abdominal: Soft, Non-Tender, No Organomegaly, No Distention, No Mass (Female) Exam: Deferred Rectal (Female) Exam: Deferred Extremities: Normal Inspection, Normal Range of Motion, Non-Tender, No Pedal Edema, Normal Capillary Refill Neurological: Alert, Oriented, CN II-XII Intact, Normal Cognition, Normal Gait, Normal Reflexes, No Motor/Sensory Deficits Psychiatric: Normal Affect, Normal Mood Skin Exam: Warm, Dry, Intact, Normal Color, No Rash Lymphatic: No Adenopathy Course - Vital Signs Last Recorded V/S: Last Vital Signs Temp 36.3 C 12/08/20 15:30 Pulse 79 12/08/20 17:30 Resp 18 12/08/20 17:30 BP 118/77 12/08/20 17:30 Pulse Ox 97 12/08/20 17:30 - Orders/Labs/Meds Orders: Active Orders 24 hr Category Date Time Status EKG Documentation Completion [RC] STAT Care 12/08/20 15:43 Active Sodium Chloride 0.9% [Normal Saline] 1,000 ml Med 12/08/20 15:45 Active IV ASDIRECTED Sodium Chloride 0.9% [Saline Flush] Med 12/08/20 15:42 Active 10 ml FLUSH ASDIRECTED PRN Peripheral IV Insertion Adult [OM.PC] Routine Oth 12/08/20 15:43 Ordered Medication Orders Sodium Chloride (Normal Saline) 1,000 mls @ 300 mls/hr IV ASDIRECTED KELLEN Last Admin: 12/08/20 15:45 Dose: 300 mls/hr Documented by: PATRICK Sodium Chloride (Saline Flush) 10 ml FLUSH ASDIRECTED PRN PRN Reason: Keep Vein Open Labs: Laboratory Tests 12/08/20 12/08/20 12/08/20 Range/Units 15:57 15:57 15:57 WBC 13.7 H (4.0-10.0) x10^3/uL RBC 3.84 L (4.00-5.50) x10^6/uL Hgb 9.0 L (12.0-16.0) g/dL Hct 29.2 L (33.0-47.0) % MCV 76.0 L D (78.0-93.0) fL MCH 23.4 L (26.0-32.0) pg MCHC 30.8 L (32.0-36.0) g/dL RDW Coeff of Tanja 16.5 H (10.0-15.0) % Plt Count 395 (130-400) x10^3/uL Neut % (Auto) 88.7 H (50.0-80.0) % Lymph % (Auto) 5.3 L (25.0-50.0) % Harmon % (Auto) 5.7 (2.0-11.0) % Eos % (Auto) 0.0 (0.0-4.0) % Baso % (Auto) 0.3 (0.2-1.2) % PT 11.3 (9.5-12.3) SEC INR 1.0 L (2.0-3.5) Sodium 137 (136-145) mmol/L Potassium 3.9 (3.5-5.1) mmol/L Chloride 99 (98-107) mmol/L Carbon Dioxide 25 (21-32) mmol/L Anion Gap 16.9 (10-20) mmol/L BUN 16 (7-18) mg/dL Creatinine 0.6 (0.55-1.02) mg/dL Est Cr Clr Drug Dosing TNP Estimated GFR (MDRD) > 60 Glucose 125 H (74-106) mg/dL Calcium 8.6 (8.5-10.1) mg/dL Corrected Calcium 9.48 (8.5-10.1) mg/dL Total Bilirubin 0.5 (0.2-1.0) mg/dL AST 29 (15-37) U/L ALT 30 (14-59) U/L Alkaline Phosphatase 97 (46-116) U/L Creatine Kinase 176 (26-192) U/L Troponin I < 0.017 (<=0.056) ng/mL C-Reactive Protein 10.4 H (<=0.9) mg/dL Total Protein 8.4 H (6.4-8.2) g/dL Albumin 2.9 L (3.4-5.0) g/dL Globulin 5.5 Albumin/Globulin Ratio 0.53 Urine Color (YELLOW) Urine Appearance (CLEAR) Urine pH (5.0-8.0) Ur Specific [place] Urine Protein (NEGATIVE) mg/dL Urine Glucose (UA) (NEGATIVE) mg/dL Urine Ketones (NEGATIVE) mg/dL Urine Occult Blood (NEGATIVE) Urine Nitrite (NEGATIVE) Urine Bilirubin (NEGATIVE) Urine Urobilinogen (0.2) EU/dL Ur Leukocyte Esterase (NEGATIVE) Urine RBC (NOT SEEN) /HPF Urine WBC (NOT SEEN) /HPF Ur Squamous Epith Cells (NEGATIVE) /HPF Amorphous Sediment Urine Bacteria (NEGATIVE) /HPF Urine Mucus (NEGATIVE) /LPF 12/08/20 Range/Units 17:33 WBC (4.0-10.0) x10^3/uL RBC (4.00-5.50) x10^6/uL Hgb (12.0-16.0) g/dL Hct (33.0-47.0) % MCV (78.0-93.0) fL MCH (26.0-32.0) pg MCHC (32.0-36.0) g/dL RDW Coeff of Tanja (10.0-15.0) % Plt Count (130-400) x10^3/uL Neut % (Auto) (50.0-80.0) % Lymph % (Auto) (25.0-50.0) % Harmon % (Auto) (2.0-11.0) % Eos % (Auto) (0.0-4.0) % Baso % (Auto) (0.2-1.2) % PT (9.5-12.3) SEC INR (2.0-3.5) Sodium (136-145) mmol/L Potassium (3.5-5.1) mmol/L Chloride (98-107) mmol/L Carbon Dioxide (21-32) mmol/L Anion Gap (10-20) mmol/L BUN (7-18) mg/dL Creatinine (0.55-1.02) mg/dL Est Cr Clr Drug Dosing Estimated GFR (MDRD) Glucose (74-106) mg/dL Calcium (8.5-10.1) mg/dL Corrected Calcium (8.5-10.1) mg/dL Total Bilirubin (0.2-1.0) mg/dL AST (15-37) U/L ALT (14-59) U/L Alkaline Phosphatase (46-116) U/L Creatine Kinase (26-192) U/L Troponin I (<=0.056) ng/mL C-Reactive Protein (<=0.9) mg/dL Total Protein (6.4-8.2) g/dL Albumin (3.4-5.0) g/dL Globulin Albumin/Globulin Ratio Urine Color Yellow (YELLOW) Urine Appearance Clear (CLEAR) Urine pH 7.0 (5.0-8.0) Ur Specific [place] 1.010 Urine Protein Negative (NEGATIVE) mg/dL Urine Glucose (UA) Negative (NEGATIVE) mg/dL Urine Ketones 15 H (NEGATIVE) mg/dL Urine Occult Blood Trace-lysed H (NEGATIVE) Urine Nitrite Negative (NEGATIVE) Urine Bilirubin Negative (NEGATIVE) Urine Urobilinogen 0.2 (0.2) EU/dL Ur Leukocyte Esterase Negative (NEGATIVE) Urine RBC 0-5 (NOT SEEN) /HPF Urine WBC 0-5 (NOT SEEN) /HPF Ur Squamous Epith Cells Few H (NEGATIVE) /HPF Amorphous Sediment Rare Urine Bacteria Not seen (NEGATIVE) /HPF Urine Mucus Rare H (NEGATIVE) /LPF Meds: Medications Generic Name Dose Route Start Last Admin Trade Name Freq PRN Reason Stop Dose Admin Sodium Chloride 1,000 mls @ 300 mls/hr 12/08/20 15:45 12/08/20 15:45 Normal Saline IV 300 mls/hr ASDIRECTED KELLEN Administration Sodium Chloride 10 ml 12/08/20 15:42 Saline Flush FLUSH ASDIRECTED PRN Keep Vein Open Departure - Departure Time of Disposition: 18:29 Disposition: Refer to Observation Clinical Impression: Dehydration, Weakness - Discharge Information Sepsis Event Note (ED) - Evaluation Sepsis Screening Result: No Definite Risk - Focused Exam Vital Signs: Vital Signs Temp Pulse Resp BP Pulse Ox 12/08/20 17:30 79 18 118/77 97 12/08/20 16:30 67 18 113/78 95 12/08/20 15:30 36.3 C 85 20 116/68 97 - Problem List Review Problem List Initiated/Reviewed/Updated: Yes - My Orders Last 24 Hours: My Active Orders 12/08/20 15:42 Sodium Chloride 0.9% [Saline Flush] 10 ml FLUSH ASDIRECTED PRN 12/08/20 15:43 EKG Documentation Completion [RC] STAT Peripheral IV Insertion Adult [OM.PC] Routine 12/08/20 15:45 Sodium Chloride 0.9% [Normal Saline] 1,000 ml IV ASDIRECTED - Assessment/Plan Last 24 Hours: My Active Orders 12/08/20 15:42 Sodium Chloride 0.9% [Saline Flush] 10 ml FLUSH ASDIRECTED PRN 12/08/20 15:43 EKG Documentation Completion [RC] STAT Peripheral IV Insertion Adult [OM.PC] Routine 12/08/20 15:45 Sodium Chloride 0.9% [Normal Saline] 1,000 ml IV ASDIRECTED Plan: Pt. will be admitted. I am very concerned about her ability to care for herself at home. Will admit her overnight for some continued IV hydration. Covid 19 was negative. With the exception of an elevated white count, her labs were all within normal limits. Pt. is a code 1. All questions were answered.
--- NOTE | 2020-12-08 17:56 | CT ---
[id number] CT/CT Head WO IV EXAM: CT Head WO IV CLINICAL DATA: SYNCOPE, VERTIGO. COMPARISON STUDY: July 28, 2020. FINDINGS: No intracranial hemorrhage, extra-axial fluid collection, mass, or acute ischemia. No hydrocephalus. Calvarium intact. Paranasal sinuses and mastoid air cells are clear. IMPRESSION: No acute intracranial findings. Erasmo Rowley MD 12/08/20 [id number] Thank you for allowing us to participate in the care of your patient.
--- NOTE | 2020-12-08 17:57 | CR ---
[id number] RAD/RAD Chest PA And Lateral EXAM: RAD Chest PA And Lateral INDICATION: SYNCOPE, BRADYCARDIA. COMPARISON: None. DISCUSSION: Central vascular congestion. Slightly tortuous thoracic aorta. Heart is normal in size. Bilateral symmetric lung hyperinflation, nonspecific but commonly seen as sequela of chronic obstructive pulmonary disease. No radiographically evident pneumonia. No pleural effusion or pneumothorax. IMPRESSION: As above. Erasmo Rowley MD 12/08/20 [id number] Thank you for allowing us to participate in the care of your patient.
--- NOTE | 2020-12-08 17:58 | CR ---
[id number] RAD/RAD Humerus Right 2V Exam: RAD Humerus Right 2V Indication:FELL ON RIGHT SIDE, MID HUMERAL PAIN. Comparison: No prior imaging for comparison. Discussion/Impression: Negative for fracture or dislocation. Erasmo Rowley MD 12/08/20 [id number] Thank you for allowing us to participate in the care of your patient.
[2020-12-08] MEDS ORDERED: Acetaminophen 325 MG Tab PO PRN (19:41)
[2020-12-08] MEDS ORDERED: Polyethylene Glycol 3350 Powder 17 GM Packet PO PRN (19:41)
[2020-12-08] MEDS ORDERED: Ferrous Gluconate [Ferrous Gluconate] 324mg PO SCH (19:45)
[2020-12-08] MEDS ORDERED: BOSWELLIA SERRA PO SCH (20:00)
[2020-12-08] MEDS ORDERED: GLUCOSAMINE PO SCH (20:00)
[2020-12-08] MEDS ORDERED: D3 PO SCH (20:00)
[2020-12-08] MEDS ORDERED: Multivitamins with Iron/Calcium/Folic Acid/Minerals Tab PO SCH (20:00)
[2020-12-08] MEDS: Fluticasone Propionate Nasal Spray 9.9 ML BOTTLE NASBOTH SCH (22:38)
[2020-12-08] MEDS: Lactated Ringers 1,000 ML IV SCH (23:25)
[2020-12-09] MEDS: Fluticasone Propionate Nasal Spray 9.9 ML BOTTLE NASBOTH SCH (08:36)
[2020-12-09] MEDS: Lactated Ringers 1,000 ML IV SCH (08:42)
[2020-12-09 14:18] VITALS: BP 103/52; PULSE 75
== END 2020-12-09 16:55 | disposition home or self-care (01) ==
LOC: VM.ED 15:30 → VM.MS 18:00
PROVIDERS: ADMIT Physician Assistant; ATTEND Physician Assistant
DX: R55 Syncope and collapse (principal); Z79.899 Other long term (current) drug therapy; Z98.890 Other specified postprocedural states; Z20.822 Contact with and (suspected) exposure to COVID-19
CPT/HCPCS: 36415; 70450; 71046; 73060-RT; 80053; 81001; 82550; 84484; 85025; 85610; 86140; 93005; 99285-25; A9270-GY; G0378; J7030; J7120; U0002